=== PATIENT | female | born 1970 | race African-American/Black ===

== ENCOUNTER 2016-10-07 14:23 | Emergency (ER) | payer MEDICAID, OTHER ==
[~2016-10-07] VITALS: Ht 182.9 cm; Wt 141.0 kg
[~2016-10-07 14:23] MED LIST: BENA10TA3 PO; CLON0.2T12 PO; DOCU-138 PO; FERR-63; FS300 PO; MEDR10TA PO
[2016-10-07] MEDS ORDERED: KETOROLAC 60MG/2ML VIAL IM STA (15:47)
[2016-10-07] MEDS ORDERED: CYCLOBENZAPRINE 10MG TABLET PO ONE (16:00)
[2016-10-07] MEDS ORDERED: AMLODIPINE 5MG TABLET PO ONE (16:00)
[2016-10-07] MEDS ORDERED: CLONIDINE 0.1MG TABLET PO ONE (16:00)
[2016-10-07 16:06] VITALS: BP 162/133
[2016-10-07 16:15] LABS: PROTHROMBIN TIME 10.7 sec
[2016-10-07 16:18] LABS: BASOPHILS % 0.7 % (0.0-2.0); EOSINOPHILS % 1.2 % (0.0-5.0); HEMATOCRIT. 40.9 % (36.0-48.0); HEMOGLOBIN. 13.7 g/dL (12.0-16.0); LYMPHOCYTES % 19.6 % (20.0-50.0); MEAN CORPUSCULAR HEMOGLOBIN 27.8 pg (28.0-32.0); MEAN CORPUSCULAR VOLUME 82.8 fL (81.0-99.0); MEAN PLATELET VOLUME 7.6 fl (7.4-10.4); MONOCYTES % 7.6 % (2.0-8.0); NEUTROPHILS % 70.9 % (40.0-76.0); PLATELET 292 x1000/uL (130-400); RED BLOOD CELL COUNT 4.94 mill/uL (4.2-5.4)
[2016-10-07 16:22] LABS: CARBON DIOXIDE 30 mEq/L (21-32); CHLORIDE 101 mEq/L (98-107)
[2016-10-07 16:54] LABS: CLARITY URINE CLOUDY (CLEAR); COLOR URINE YELLOW (YELLOW); GLUCOSE URINE TRACE (NEGATIVE); KETONES URINE NEGATIVE (NEGATIVE); LEUKOCYTE ESTERASE URINE 2+ (NEGATIVE); NITRITE URINE NEGATIVE (NEGATIVE); OCCULT BLOOD URINE 1+ (NEGATIVE); PH URINE 5.5 (4.5-8.0); PROTEIN URINE 2+ (NEGATIVE); SPECIFIC GRAVITY URINE 1.021 (1.005-1.030)
== END 2016-10-07 20:05 | disposition home or self-care (01) ==
LOC: ER 20:04
DX: M54.30 Sciatica, unspecified side (principal); M54.16 Radiculopathy, lumbar region; N30.00 Acute cystitis without hematuria; I16.0 Hypertensive urgency; Z88.1 Allergy status to other antibiotic agents; Z88.2 Allergy status to sulfonamides
CPT/HCPCS: 36415; 80053; 81001; 81025; 85025; 85610; 93005; 99285; J1885

== ENCOUNTER 2019-03-30 20:51 | Inpatient (IN) | payer MEDICAID, OTHER ==
[~2019-03-30] VITALS: Ht 182.9 cm; Wt 93.0 kg
[~2019-03-30 20:51] MED LIST changes: -BENA10TA3 PO; +BENA10TA74 PO; +FERR325T23 PO; -FS300 PO
[2019-03-30] MEDS ORDERED: ALBUTEROL (0.083%) 2.5MG/3ML NEB HHN STA (21:21)
[2019-03-30] MEDS ORDERED: ONDANSETRON HCL 4MG/2ML INJ IV STA (21:21)
[2019-03-30] MEDS ORDERED: IPRATROPIUM BROMIDE (0.02%) 0.5MG/2.5ML NEB HHN STA (21:21)
[2019-03-30] MEDS ORDERED: MORPHINE SULFATE 4 MG/ML CPJ (NOT FOR IM USE) IV STA (21:21)
[2019-03-30] MEDS ORDERED: SODIUM CHLORIDE 0.9% 1000ML BAG (SEPSIS BOLUS) IV ONE (21:30)
[2019-03-30 23:16] LABS: CLARITY URINE CLEAR (CLEAR); COLOR URINE YELLOW (YELLOW); KETONES URINE NEGATIVE (NEGATIVE); LEUKOCYTE ESTERASE URINE TRACE (NEGATIVE); NITRITE URINE NEGATIVE (NEGATIVE); OCCULT BLOOD URINE NEGATIVE (NEGATIVE); PROTEIN URINE NEGATIVE (NEGATIVE); SPECIFIC GRAVITY URINE 1.017 (1.005-1.030)
[2019-03-30 23:49] LABS: CHLORIDE 112 mEq/L (98-107); HEMOGLOBIN. 12.3 g/dL (12.0-16.0); MEAN CORPUSCULAR HEMOGLOBIN 29.6 pg (28.0-32.0); MEAN CORPUSCULAR VOLUME 91.6 fL (81.0-99.0); MEAN PLATELET VOLUME 7.6 fl (7.4-10.4); PLATELET 164 x1000/uL (130-400); RED BLOOD CELL COUNT 4.15 mill/uL (4.2-5.4); RED CELL DISTRIBUTION WIDTH 13.7 % (11.6-14.6)
[2019-03-30 23:52] LABS: INR 1.1; PROTHROMBIN TIME 11.1 sec (9.6-11.0)
[2019-03-31 00:12] LABS: HCG SCREEN NEGATIVE
[2019-03-31 00:17] LABS: ATYPICAL LYMPHOCYTES 1; PLATELET ESTIMATE NORMAL
[2019-03-31] MEDS ORDERED: PIPERACILLIN/TAZ 3.375G PREMIX 50 ML IV ONE (01:30)
[2019-03-31] MEDS ORDERED: VANCOMYCIN 1 G PREMIX 200 ML IV ONE (02:00)
[2019-03-31] MEDS ORDERED: IOHEXOL-350 100 ML BOTTLE ONE (03:51)
[2019-03-31] MEDS ORDERED: HYDRALAZINE 20MG/ML VIAL IV PRN (07:15)
[2019-03-31] MEDS ORDERED: MAGNESIUM/ALUMINUM HYDROXIDE/SIMETHICONE 30ML UDC PO PRN (07:15)
[2019-03-31] MEDS ORDERED: DOCUSATE SODIUM 100MG CAPSULE PO PRN (07:15)
[2019-03-31] MEDS ORDERED: CLONIDINE 0.1MG TABLET PO PRN (07:15)
[2019-03-31] MEDS ORDERED: ACETAMINOPHEN 325MG TABLET PO PRN (07:15)
[2019-03-31] MEDS ORDERED: ONDANSETRON HCL 4MG/2ML INJ IV PRN (07:15)
[2019-03-31] MEDS ORDERED: LORAZEPAM 2MG/ML CPJ IV PRN (07:15)
[2019-03-31] MEDS ORDERED: DIPHENHYDRAMINE 50MG/ML VIAL IV PRN (07:15)
[2019-03-31] MEDS ORDERED: GUAIFENESIN 200MG/10ML SUGAR FREE UDC PO PRN (07:15)
[2019-03-31] MEDS ORDERED: IPRATROPIUM/ALBUTEROL 0.5-3(2.5)MG/3ML NEB HHN PRN ×2 (07:15→16:00)
[2019-03-31] MEDS ORDERED: HYDROCODONE/ACETAMINOPHEN 10/325MG TABLET PO PRN (07:15)
[2019-03-31] MEDS ORDERED: PIPERACILLIN/TAZ 3.375G PREMIX 50 ML IV SCH (08:00)
[2019-03-31] MEDS ORDERED: VANCOMYCIN 1 G PREMIX 200 ML IV SCH (08:00)
[2019-03-31] MEDS: ENOXAPARIN 40MG/0.4ML SYR SUBCUT SCH (08:17)
[2019-03-31] MEDS: MORPHINE SULFATE 2 MG/ML CPJ (NOT FOR IM USE) IV PRN ×3 (08:18→20:40)
[2019-03-31 10:10] VITALS: BP 131/93
[2019-03-31 12:00] VITALS: BP 108/86
[2019-03-31] MEDS ORDERED: DOCU50LI25 MT (12:38)
[2019-03-31] MEDS ORDERED: FAMO-133 MT (12:39)
[2019-03-31] MEDS ORDERED: HYDR-4133 MT (12:40)
[2019-03-31] MEDS ORDERED: LABE200T28 MT (12:41)
[2019-03-31] MEDS ORDERED: BO1 TP (12:43)
[2019-03-31] MEDS ORDERED: LEVO75TA7 MT (12:44)
[2019-03-31] MEDS ORDERED: IPRA3AMP31 NEB (12:44)
[2019-03-31] MEDS ORDERED: CLON0.1T PO (12:45)
[2019-03-31] MEDS ORDERED: METF-414 MT (12:46)
[2019-03-31] MEDS ORDERED: HYDR-3280 MT (13:04)
[2019-03-31] MEDS: SODIUM CHLORIDE 0.9% INJ 3ML FLUSH IVF SCH ×2 (14:00→21:38)
[2019-03-31] MEDS ORDERED: FUROSEMIDE 40MG/4ML VIAL IVP SCH (15:00)
[2019-03-31] MEDS: POTASSIUM CHLORIDE 20MEQ/PACKET PO SCH (15:15)
[2019-03-31 16:00] VITALS: BP 119/87
[2019-03-31] MEDS: PIPERACILLIN/TAZOBACTAM 3.375 G in DEXT 5% WATER 100 ML IV SCH ×2 (17:06→23:53)
[2019-03-31 17:22] LABS: CREATINE KINASE 59 IU/L (26-192); CREATINE KINASE MB FRACTION < 1.0 ng/mL (0.5-3.6)
[2019-03-31] MEDS: VANCOMYCIN 1 G PREMIX 200 ML IV SCH (18:27)
[2019-03-31 20:00] VITALS: BP 135/97
[2019-03-31] MEDS: IPRATROPIUM/ALBUTEROL 0.5-3(2.5)MG/3ML NEB HHN SCH (21:24)
[2019-03-31 23:45] LABS: CREATINE KINASE 46 IU/L (26-192)
[2019-03-31 23:46] LABS: CREATINE KINASE MB FRACTION < 1.0 ng/mL (0.5-3.6)
[2019-04-01] VITALS: BP 129/110
[2019-04-01] MEDS: ACETYLCYSTEINE 100MG/ML 10% VIAL 4ML INH SCH ×3 (00:15→12:49)
[2019-04-01] MEDS: VANCOMYCIN 1 G PREMIX 200 ML IV SCH ×2 (01:03→08:49)
[2019-04-01] MEDS: MORPHINE SULFATE 2 MG/ML CPJ (NOT FOR IM USE) IV PRN ×3 (03:39→13:16)
[2019-04-01 04:00] VITALS: BP 123/92
[2019-04-01] MEDS: IPRATROPIUM/ALBUTEROL 0.5-3(2.5)MG/3ML NEB HHN SCH ×4 (04:00→12:49)
[2019-04-01] MEDS: PIPERACILLIN/TAZOBACTAM 3.375 G in DEXT 5% WATER 100 ML IV SCH (06:04)
[2019-04-01] MEDS: SODIUM CHLORIDE 0.9% INJ 3ML FLUSH IVF SCH ×2 (06:05→13:17)
[2019-04-01 08:34] VITALS: BP 137/91
[2019-04-01] MEDS: POTASSIUM CHLORIDE 20MEQ/PACKET PO SCH (08:49)
[2019-04-01] MEDS: ENOXAPARIN 40MG/0.4ML SYR SUBCUT SCH (08:50)
[2019-04-01] MEDS ORDERED: FUROSEMIDE 40MG/4ML VIAL IVP SCH (09:00)
[2019-04-01 11:17] VITALS: BP 137/91
[2019-04-01 12:02] VITALS: BP 117/85
[2019-04-01] MEDS ORDERED: PIPERACILLIN/TAZOBACTAM 3.375 G in DEXT 5% WATER 100 ML IV SCH (13:00)
[2019-04-01 13:16] VITALS: BP 117/85
== END 2019-04-01 15:30 | disposition home or self-care (01) | DRG 720 ==
LOC: ER 20:51 → 6WST 03-31 00:56 → EDBEDREQ 03-31 01:01 → EDBEDREQDT 03-31 01:01 → EDBEDREQSVC 03-31 01:01 → EDBEDREQTM 03-31 01:01 → ENRESERV 03-31 09:02
PROVIDERS: ADMIT Internal Medicine; ATTEND Internal Medicine
DX: A41.9 Sepsis, unspecified organism (principal); J96.00 Acute respiratory failure, unspecified whether with hypoxia or hypercapnia; E87.2 Acidosis; E46 Unspecified protein-calorie malnutrition; Z93.0 Tracheostomy status; R13.10 Dysphagia, unspecified; I11.0 Hypertensive heart disease with heart failure; I50.9 Heart failure, unspecified; J45.901 Unspecified asthma with (acute) exacerbation; I71.2 Thoracic aortic aneurysm, without rupture; E03.9 Hypothyroidism, unspecified; G89.29 Other chronic pain; R16.0 Hepatomegaly, not elsewhere classified; N92.1 Excessive and frequent menstruation with irregular cycle; D64.9 Anemia, unspecified; E11.9 Type 2 diabetes mellitus without complications; Z68.27 Body mass index [BMI] 27.0-27.9, adult; Z79.84 Long term (current) use of oral hypoglycemic drugs; Z79.899 Other long term (current) drug therapy; Z82.49 Family history of ischemic heart disease and other diseases of the circulatory system; Z86.73 Personal history of transient ischemic attack (TIA), and cerebral infarction without residual deficits; Z88.2 Allergy status to sulfonamides; Z88.8 Allergy status to other drugs, medicaments and biological substances; K80.20 Calculus of gallbladder without cholecystitis without obstruction
CPT/HCPCS: 36415; 71045; 71275; 76705; 80053; 81003; 82550; 82553; 83605; 83880; 84145; 84484; 84703; 85025; 86850; 86900; 87804; 93005; 93306; 93970; 94640; 99291; J1200; J1650; J1940; J2270; J2405; J2543; J3370; J7030; J7040; J7060; J7608; Q9967

== ENCOUNTER 2019-04-05 16:18 | Inpatient (IN) | payer MEDICAID ==
[~2019-04-05] VITALS: Ht 167.6 cm; Wt 96.2 kg
[2019-04-05] VITALS (8 sets, daily range): BP systolic 103–126; BP diastolic 60–96
[~2019-04-05 16:18] MED LIST changes: +BO1 TP; +CLON0.1T PO; +DOCU50LI25 MT; +FAMO-133 MT; +HYDR-3280 MT; +HYDR-4133 MT; +IPRA3AMP31 NEB; +IPRATROPIUM/ALBUTEROL 0.5-3(2.5)MG/3ML NEB NEB SCH; +LABE200T28 MT; +LEVO75TA7 MT; +METF-414 MT; +VANCOMYCIN 1250MG in DEXTROSE 5% WATER 250ML IV SCH
[2019-04-05 16:43] LABS: BASOPHILS % 0.5 % (0.0-2.0); EOSINOPHILS % 0.9 % (0.0-5.0); HEMATOCRIT. 45.2 % (36.0-48.0); HEMOGLOBIN. 14.2 g/dL (12.0-16.0); LYMPHOCYTES % 40.2 % (20.0-50.0); MEAN CORPUSCULAR HEMOGLOBIN 29.6 pg (28.0-32.0); MEAN CORPUSCULAR VOLUME 94.2 fL (81.0-99.0); MEAN PLATELET VOLUME 8.1 fl (7.4-10.4); MONOCYTES % 9.7 % (2.0-8.0); NEUTROPHILS % 48.7 % (40.0-76.0); PLATELET 368 x1000/uL (130-400); RED BLOOD CELL COUNT 4.79 mill/uL (4.2-5.4); RED CELL DISTRIBUTION WIDTH 14.1 % (11.6-14.6)
[2019-04-05] MEDS ORDERED: PROPOFOL 10MG/ML 100ML 100 ML IV ONE (16:45)
[2019-04-05 16:49] LABS: PROTHROMBIN TIME 10.7 sec (9.6-11.0)
[2019-04-05 16:50] LABS: CHLORIDE 104 mEq/L (98-107)
[2019-04-05 17:27] LABS: BG BASE EXCESS -13.4 mmol/L (-2.0-2.0); BG CARBOXYHEMOGLOBIN 0.2 % (0.5-1.5); BG DEOXYHEMOGLOBIN 0.4 % (0.0-5.0); BG FRACTION INSPIRED OXYGEN 100; BG HCO3 ACT 12.9 mmol/L (22.0-26.0); BG METHEMOGLOBIN 0.4 % (0.0-1.5); BG OXYGEN SATURATION 99.6 % (92.0-98.5); BG PCO2 31.4 mmHg (35.0-45.0); BG PO2 408.6 mmHg (75.0-100.0); BG SAMPLE SITE RIGHT BRACHIAL; BG TIDAL VOLUME(mL) 500 mL; BG VENT MODE VENT - A/C; BG VENT RATE 12 set
[2019-04-05] MEDS ORDERED: AZITHROMYCIN 500 MG in DEXT 5% WATER 250 ML IV SCH (17:30)
[2019-04-05] MEDS ORDERED: CEFTRIAXONE 1 G PREMIX 50 ML IV ONE (17:30)
[2019-04-05 17:54] LABS: CLARITY URINE TURBID (CLEAR); COLOR URINE YELLOW (YELLOW); KETONES URINE NEGATIVE (NEGATIVE); LEUKOCYTE ESTERASE URINE NEGATIVE (NEGATIVE); NITRITE URINE NEGATIVE (NEGATIVE); OCCULT BLOOD URINE 2+ (NEGATIVE); PH URINE 6.5 (4.5-8.0); PROTEIN URINE 4+ (NEGATIVE); SPECIFIC GRAVITY URINE 1.022 (1.005-1.030); UROBILINOGEN URINE 0.2 E.U./dL (0.2-1.0)
[2019-04-05 19:01] LABS: HCG SCREEN NEGATIVE
[2019-04-05] MEDS ORDERED: GUAIFENESIN 200MG/10ML SUGAR FREE UDC PO PRN (20:15)
[2019-04-05] MEDS ORDERED: DEXTROSE 50% WATER 50ML SYRINGE IV PRN (20:15)
[2019-04-05] MEDS ORDERED: ENOXAPARIN 40MG/0.4ML SYR SUBCUT SCH (20:15)
[2019-04-05] MEDS ORDERED: HYDRALAZINE 20MG/ML VIAL IV PRN (20:15)
[2019-04-05] MEDS ORDERED: MAGNESIUM/ALUMINUM HYDROXIDE/SIMETHICONE 30ML UDC PO PRN (20:15)
[2019-04-05] MEDS ORDERED: NA PHOS,M-B/NA PHOS,DI-BA ENEMA 118ML PR PRN (20:15)
[2019-04-05] MEDS ORDERED: PIPERACILLIN/TAZ 3.375G PREMIX 50 ML IV SCH (20:15)
[2019-04-05] MEDS ORDERED: DOCUSATE SODIUM 100MG CAPSULE PO PRN (20:15)
[2019-04-05] MEDS ORDERED: IPRATROPIUM/ALBUTEROL 0.5-3(2.5)MG/3ML NEB NEB PRN (20:15)
[2019-04-05] MEDS ORDERED: VANCOMYCIN 1 G PREMIX 200 ML IV SCH (20:15)
[2019-04-05] MEDS ORDERED: ACETAMINOPHEN 325MG TABLET PO PRN (20:15)
[2019-04-05] MEDS: SODIUM CHLORIDE 0.9% INJ 3ML FLUSH IVF SCH (22:00)
[2019-04-05] MEDS ORDERED: IOHEXOL-350 100 ML BOTTLE ONE (22:02)
[2019-04-05] MEDS: BLOOD SUGAR DIAGNOSTIC STRIP TEST SCH (23:00)
[2019-04-05] MEDS: INSULIN LISPRO 100 UNITS/ML SUBCUT SCH (23:00)
[2019-04-05] MEDS ORDERED: SODIUM BICARBONATE 8.4% 1 MEQ/ML 50ML SYR IV NR (23:00)
[2019-04-05 23:07] LABS: CREATINE KINASE MB FRACTION 5.9 ng/mL (0.5-3.6)
[2019-04-05] MEDS: DEXT 5%/0.45% NACL 1000ML 1,000 ML IV SCH (23:52)
[2019-04-05] MEDS: PROPOFOL 10MG/ML 100ML 100 ML IV PRN (23:54)
[2019-04-06] VITALS (60 sets, daily range): BP systolic 99–149; BP diastolic 48–103
[2019-04-06] MEDS ORDERED: VANCOMYCIN 2,000 MG in DEXT 5% WATER 500 ML IV SCH ×2
[2019-04-06] MEDS: PIPERACILLIN/TAZOBACTAM 3.375 G in DEXT 5% WATER 100 ML IV SCH ×4 (00:09→20:06)
[2019-04-06] MEDS: PROPOFOL 10MG/ML 100ML 100 ML IV PRN ×2 (03:14→07:00)
[2019-04-06 05:40] LABS: CHLORIDE 106 mEq/L (98-107)
[2019-04-06] MEDS: SODIUM CHLORIDE 0.9% INJ 3ML FLUSH IVF SCH ×3 (05:42→21:06)
[2019-04-06 05:46] LABS: BASOPHILS % 0.3 % (0.0-2.0); EOSINOPHILS % 0.4 % (0.0-5.0); HEMATOCRIT. 37.2 % (36.0-48.0); HEMOGLOBIN. 12.6 g/dL (12.0-16.0); LYMPHOCYTES % 22.1 % (20.0-50.0); MEAN CORPUSCULAR HEMOGLOBIN 29.8 pg (28.0-32.0); MEAN CORPUSCULAR VOLUME 87.6 fL (81.0-99.0); MONOCYTES % 8.9 % (2.0-8.0); NEUTROPHILS % 68.3 % (40.0-76.0); RED BLOOD CELL COUNT 4.25 mill/uL (4.2-5.4); RED CELL DISTRIBUTION WIDTH 13.5 % (11.6-14.6)
[2019-04-06] MEDS: BLOOD SUGAR DIAGNOSTIC STRIP TEST SCH ×4 (05:52→21:06)
[2019-04-06 05:55] LABS: CREATINE KINASE 146 IU/L (26-192)
[2019-04-06 05:57] LABS: CREATINE KINASE MB FRACTION 6.2 ng/mL (0.5-3.6)
[2019-04-06] MEDS: INSULIN LISPRO 100 UNITS/ML SUBCUT SCH ×4 (06:16→21:00)
[2019-04-06 08:08] LABS: BG BASE EXCESS 1.2 mmol/L (-2.0-2.0); BG DEOXYHEMOGLOBIN 0.7 % (0.0-5.0); BG FRACTION INSPIRED OXYGEN 50; BG HCO3 ACT 23.5 mmol/L (22.0-26.0); BG METHEMOGLOBIN 0.3 % (0.0-1.5); BG OXYGEN SATURATION 99.3 % (92.0-98.5); BG PCO2 30.7 mmHg (35.0-45.0); BG PH 7.502 (7.350-7.450); BG PO2 202.1 mmHg (75.0-100.0); BG SAMPLE SITE RIGHT BRACHIAL; BG TIDAL VOLUME(mL) 500 mL; BG TOTAL HEMOGLOBIN 13.6 g/dL (12.0-18.0); BG VENT MODE VENT - A/C; BG VENT RATE 14 set
[2019-04-06] MEDS: IPRATROPIUM/ALBUTEROL 0.5-3(2.5)MG/3ML NEB HHN SCH ×3 (08:57→20:45)
[2019-04-06] MEDS: ENOXAPARIN 30MG/0.3ML SYR SUBCUT SCH ×2 (09:26→21:00)
[2019-04-06] MEDS ORDERED: POTASSIUM CHLORIDE 20MEQ TABLET SR PO NR (09:30)
[2019-04-06] MEDS: ASPIRIN 81MG TABLET NG SCH (12:18)
[2019-04-06] MEDS: QUETIAPINE FUMARATE 25MG TABLET PEG SCH ×2 (12:18→21:07)
[2019-04-06] MEDS: VANCOMYCIN 1250MG in DEXTROSE 5% WATER 250ML IV SCH ×2 (12:18→21:07)
[2019-04-06] MEDS: BUDESONIDE 0.5MG/2ML NEB HHN SCH ×2 (15:52→20:45)
[2019-04-06] MEDS: MORPHINE SULFATE 2 MG/ML CPJ (NOT FOR IM USE) IV PRN ×2 (16:06→22:47)
[2019-04-06] MEDS: ONDANSETRON HCL 4MG/2ML INJ IV PRN (16:06)
[2019-04-06] MEDS: DEXT 5%/0.45% NACL 1000ML 1,000 ML IV SCH (22:48)
[2019-04-07] VITALS (24 sets, daily range): BP systolic 111–144; BP diastolic 75–100
[2019-04-07] MEDS: IPRATROPIUM/ALBUTEROL 0.5-3(2.5)MG/3ML NEB HHN SCH ×3 (02:59→19:55)
[2019-04-07] MEDS: SODIUM CHLORIDE 0.9% INJ 3ML FLUSH IVF SCH ×3 (05:04→21:01)
[2019-04-07] MEDS: MORPHINE SULFATE 2 MG/ML CPJ (NOT FOR IM USE) IV PRN ×2 (05:13→17:13)
[2019-04-07 05:42] LABS: BASOPHILS % 0.4 % (0.0-2.0); EOSINOPHILS % 2.7 % (0.0-5.0); HEMATOCRIT. 37.6 % (36.0-48.0); HEMOGLOBIN. 12.5 g/dL (12.0-16.0); LYMPHOCYTES % 32.9 % (20.0-50.0); MEAN CORPUSCULAR VOLUME 90.1 fL (81.0-99.0); MEAN PLATELET VOLUME 7.6 fl (7.4-10.4); MONOCYTES % 13.6 % (2.0-8.0); NEUTROPHILS % 50.4 % (40.0-76.0); PLATELET 226 x1000/uL (130-400); RED BLOOD CELL COUNT 4.18 mill/uL (4.2-5.4); RED CELL DISTRIBUTION WIDTH 13.8 % (11.6-14.6)
[2019-04-07 05:45] LABS: CHLORIDE 108 mEq/L (98-107)
[2019-04-07] MEDS: BLOOD SUGAR DIAGNOSTIC STRIP TEST SCH ×4 (05:54→21:01)
[2019-04-07 05:57] LABS: LDL CHOLESTEROL 82 mg/dL (5-100)
[2019-04-07 05:58] LABS: HDL CHOLESTEROL 35 mg/dL (40-59)
[2019-04-07] MEDS: INSULIN LISPRO 100 UNITS/ML SUBCUT SCH ×4 (06:26→21:00)
[2019-04-07] MEDS: PIPERACILLIN/TAZOBACTAM 3.375 G in DEXT 5% WATER 100 ML IV SCH ×6 (06:26→23:53)
[2019-04-07] MEDS: BUDESONIDE 0.5MG/2ML NEB HHN SCH ×2 (07:55→19:55)
[2019-04-07 08:04] LABS: INR 1.1; PROTHROMBIN TIME 10.9 sec (9.6-11.0)
[2019-04-07] MEDS: VANCOMYCIN 1250MG in DEXTROSE 5% WATER 250ML IV SCH (08:50)
[2019-04-07] MEDS: ENOXAPARIN 30MG/0.3ML SYR SUBCUT SCH (08:50)
[2019-04-07] MEDS: ASPIRIN 81MG TABLET NG SCH (08:51)
[2019-04-07] MEDS: LORAZEPAM 2MG/ML CPJ IV PRN ×2 (08:51→20:44)
[2019-04-07] MEDS: QUETIAPINE FUMARATE 25MG TABLET PEG SCH ×2 (08:51→20:44)
[2019-04-07] MEDS: VANCOMYCIN 1 G PREMIX 200 ML IV SCH ×2 (11:26→23:57)
[2019-04-07] MEDS: DIPHENHYDRAMINE 50MG/ML VIAL IV PRN (20:44)
[2019-04-07] MEDS: DEXT 5%/0.45% NACL 1000ML 1,000 ML IV SCH (23:53)
[2019-04-08] VITALS (24 sets, daily range): BP systolic 108–153; BP diastolic 34–113
[2019-04-08] MEDS: IPRATROPIUM/ALBUTEROL 0.5-3(2.5)MG/3ML NEB HHN SCH ×4 (02:05→20:38)
[2019-04-08] MEDS: LORAZEPAM 2MG/ML CPJ IV PRN ×2 (02:46→20:32)
[2019-04-08] MEDS: SODIUM CHLORIDE 0.9% INJ 3ML FLUSH IVF SCH ×3 (05:22→22:58)
[2019-04-08] MEDS: PIPERACILLIN/TAZOBACTAM 3.375 G in DEXT 5% WATER 100 ML IV SCH ×4 (05:22→23:56)
[2019-04-08 06:02] LABS: BASOPHILS % 0.5 % (0.0-2.0); EOSINOPHILS % 3.4 % (0.0-5.0); HEMATOCRIT. 35.9 % (36.0-48.0); HEMOGLOBIN. 12.1 g/dL (12.0-16.0); LYMPHOCYTES % 19.2 % (20.0-50.0); MEAN CORPUSCULAR HEMOGLOBIN 29.8 pg (28.0-32.0); MEAN CORPUSCULAR VOLUME 88.5 fL (81.0-99.0); MEAN PLATELET VOLUME 8.1 fl (7.4-10.4); MONOCYTES % 10.7 % (2.0-8.0); NEUTROPHILS % 66.2 % (40.0-76.0); PLATELET 226 x1000/uL (130-400); RED BLOOD CELL COUNT 4.05 mill/uL (4.2-5.4); RED CELL DISTRIBUTION WIDTH 13.8 % (11.6-14.6)
[2019-04-08 06:21] LABS: CHLORIDE 109 mEq/L (98-107)
[2019-04-08] MEDS: BLOOD SUGAR DIAGNOSTIC STRIP TEST SCH ×4 (06:26→20:33)
[2019-04-08] MEDS: INSULIN LISPRO 100 UNITS/ML SUBCUT SCH ×4 (06:27→20:33)
[2019-04-08] MEDS: BUDESONIDE 0.5MG/2ML NEB HHN SCH ×2 (08:00→20:38)
[2019-04-08] MEDS: ASPIRIN 81MG TABLET NG SCH (08:17)
[2019-04-08] MEDS: QUETIAPINE FUMARATE 25MG TABLET PEG SCH ×2 (08:17→20:32)
[2019-04-08] MEDS: MORPHINE SULFATE 2 MG/ML CPJ (NOT FOR IM USE) IV PRN ×2 (09:50→20:32)
[2019-04-08] MEDS ORDERED: KCL 20MEQ/100ML PREMIX 100 ML IV ONE (10:15)
[2019-04-08] MEDS: DIPHENHYDRAMINE 50MG/ML VIAL IV PRN (10:53)
[2019-04-08] MEDS ORDERED: KCL 20MEQ/100ML PREMIX 100 ML IV NR (12:00)
[2019-04-08] MEDS: VANCOMYCIN 1250MG in DEXTROSE 5% WATER 250ML IV SCH (18:22)
[2019-04-08] MEDS: ONDANSETRON HCL 4MG/2ML INJ IV PRN (20:56)
[2019-04-08] MEDS: DEXT 5%/0.45% NACL 1000ML 1,000 ML IV SCH (23:50)
[2019-04-09] VITALS (25 sets, daily range): BP systolic 130–167; BP diastolic 76–116
[2019-04-09] MEDS: IPRATROPIUM/ALBUTEROL 0.5-3(2.5)MG/3ML NEB HHN SCH ×4 (01:30→20:50)
[2019-04-09] MEDS: MORPHINE SULFATE 2 MG/ML CPJ (NOT FOR IM USE) IV PRN ×3 (02:22→14:35)
[2019-04-09] MEDS: HYDROCODONE/ACETAMINOPHEN 10/325MG TABLET PO PRN ×2 (04:52→20:27)
[2019-04-09] MEDS: PIPERACILLIN/TAZOBACTAM 3.375 G in DEXT 5% WATER 100 ML IV SCH ×3 (05:23→17:24)
[2019-04-09] MEDS: SODIUM CHLORIDE 0.9% INJ 3ML FLUSH IVF SCH ×3 (05:23→22:07)
[2019-04-09] MEDS: BLOOD SUGAR DIAGNOSTIC STRIP TEST SCH ×4 (06:18→21:00)
[2019-04-09] MEDS: INSULIN LISPRO 100 UNITS/ML SUBCUT SCH ×4 (06:19→21:00)
[2019-04-09] MEDS: BUDESONIDE 0.5MG/2ML NEB HHN SCH (08:00)
[2019-04-09] MEDS: ASPIRIN 81MG TABLET NG SCH (08:45)
[2019-04-09] MEDS: QUETIAPINE FUMARATE 25MG TABLET PEG SCH ×2 (08:45→20:27)
[2019-04-09] MEDS: VANCOMYCIN 1250MG in DEXTROSE 5% WATER 250ML IV SCH (11:43)
[2019-04-09] MEDS ORDERED: LORAZEPAM 2MG/ML CPJ IV SCH (11:45)
[2019-04-09] MEDS: DIPHENHYDRAMINE 50MG/ML VIAL IV PRN (16:38)
[2019-04-09] MEDS: LORAZEPAM 2MG/ML CPJ IV PRN (18:20)
[2019-04-10] VITALS (24 sets, daily range): BP systolic 106–157; BP diastolic 56–101
[2019-04-10] MEDS: DEXT 5%/0.45% NACL 1000ML 1,000 ML IV SCH
[2019-04-10] MEDS: PIPERACILLIN/TAZOBACTAM 3.375 G in DEXT 5% WATER 100 ML IV SCH ×4 (00:33→17:21)
[2019-04-10] MEDS: MORPHINE SULFATE 2 MG/ML CPJ (NOT FOR IM USE) IV PRN ×3 (01:23→17:14)
[2019-04-10] MEDS: VANCOMYCIN 1250MG in DEXTROSE 5% WATER 250ML IV SCH (05:00)
[2019-04-10 05:02] LABS: CHLORIDE 108 mEq/L (98-107)
[2019-04-10 05:08] LABS: BASOPHILS % 0.9 % (0.0-2.0); EOSINOPHILS % 2.2 % (0.0-5.0); HEMATOCRIT. 38.6 % (36.0-48.0); HEMOGLOBIN. 13.3 g/dL (12.0-16.0); MEAN CORPUSCULAR HEMOGLOBIN 30.7 pg (28.0-32.0); MEAN CORPUSCULAR VOLUME 89.1 fL (81.0-99.0); MEAN PLATELET VOLUME 7.7 fl (7.4-10.4); MONOCYTES % 6.3 % (2.0-8.0); NEUTROPHILS % 75.6 % (40.0-76.0); PLATELET 238 x1000/uL (130-400); RED BLOOD CELL COUNT 4.33 mill/uL (4.2-5.4); RED CELL DISTRIBUTION WIDTH 13.6 % (11.6-14.6)
[2019-04-10] MEDS: SODIUM CHLORIDE 0.9% INJ 3ML FLUSH IVF SCH ×3 (06:00→21:58)
[2019-04-10] MEDS: INSULIN LISPRO 100 UNITS/ML SUBCUT SCH ×4 (07:00→20:36)
[2019-04-10] MEDS: BLOOD SUGAR DIAGNOSTIC STRIP TEST SCH ×4 (07:14→20:35)
[2019-04-10] MEDS: IPRATROPIUM/ALBUTEROL 0.5-3(2.5)MG/3ML NEB HHN SCH ×3 (08:02→20:00)
[2019-04-10] MEDS: ASPIRIN 81MG TABLET NG SCH (08:59)
[2019-04-10] MEDS: QUETIAPINE FUMARATE 25MG TABLET PEG SCH ×2 (08:59→20:09)
[2019-04-10] MEDS: HYDROCODONE/ACETAMINOPHEN 10/325MG TABLET PO PRN (18:43)
[2019-04-10] MEDS: DIPHENHYDRAMINE 50MG/ML VIAL IV PRN (20:09)
[2019-04-10] MEDS: LORAZEPAM 2MG/ML CPJ IV PRN (22:13)
[2019-04-11] VITALS (24 sets, daily range): BP systolic 106–147; BP diastolic 70–97
[2019-04-11] MEDS: PIPERACILLIN/TAZOBACTAM 3.375 G in DEXT 5% WATER 100 ML IV SCH ×5 (00:46→23:54)
[2019-04-11] MEDS: DEXT 5%/0.45% NACL 1000ML 1,000 ML IV SCH ×2 (00:46→23:54)
[2019-04-11] MEDS: VANCOMYCIN 1250MG in DEXTROSE 5% WATER 250ML IV SCH ×2 (00:48→17:34)
[2019-04-11] MEDS: IPRATROPIUM/ALBUTEROL 0.5-3(2.5)MG/3ML NEB HHN SCH ×3 (01:50→14:51)
[2019-04-11 05:37] LABS: BASOPHILS % 0.8 % (0.0-2.0); EOSINOPHILS % 2.7 % (0.0-5.0); HEMATOCRIT. 35.4 % (36.0-48.0); HEMOGLOBIN. 12.2 g/dL (12.0-16.0); LYMPHOCYTES % 19.6 % (20.0-50.0); MEAN CORPUSCULAR HEMOGLOBIN 30.8 pg (28.0-32.0); MEAN CORPUSCULAR VOLUME 89.4 fL (81.0-99.0); MEAN PLATELET VOLUME 8.5 fl (7.4-10.4); MONOCYTES % 7.1 % (2.0-8.0); NEUTROPHILS % 69.8 % (40.0-76.0); PLATELET 281 x1000/uL (130-400); RED BLOOD CELL COUNT 3.96 mill/uL (4.2-5.4); RED CELL DISTRIBUTION WIDTH 13.9 % (11.6-14.6)
[2019-04-11] MEDS: SODIUM CHLORIDE 0.9% INJ 3ML FLUSH IVF SCH ×3 (05:56→22:00)
[2019-04-11 06:17] LABS: CHLORIDE 105 mEq/L (98-107)
[2019-04-11] MEDS: INSULIN LISPRO 100 UNITS/ML SUBCUT SCH ×4 (06:22→21:00)
[2019-04-11] MEDS: BLOOD SUGAR DIAGNOSTIC STRIP TEST SCH ×4 (06:22→21:17)
[2019-04-11] MEDS: MORPHINE SULFATE 2 MG/ML CPJ (NOT FOR IM USE) IV PRN ×3 (07:51→21:20)
[2019-04-11] MEDS: QUETIAPINE FUMARATE 25MG TABLET PEG SCH ×2 (09:18→21:29)
[2019-04-11] MEDS: ASPIRIN 81MG TABLET NG SCH (09:18)
[2019-04-11] MEDS: HYDROCODONE/ACETAMINOPHEN 10/325MG TABLET PO PRN (14:38)
[2019-04-11] MEDS: DIPHENHYDRAMINE 50MG/ML VIAL IV PRN (16:06)
[2019-04-12] VITALS (25 sets, daily range): BP systolic 104–145; BP diastolic 70–103
[2019-04-12] MEDS: MORPHINE SULFATE 2 MG/ML CPJ (NOT FOR IM USE) IV PRN ×4 (01:47→15:30)
[2019-04-12] MEDS: SODIUM CHLORIDE 0.9% INJ 3ML FLUSH IVF SCH ×3 (05:06→22:00)
[2019-04-12] MEDS: PIPERACILLIN/TAZOBACTAM 3.375 G in DEXT 5% WATER 100 ML IV SCH ×3 (05:36→17:00)
[2019-04-12] MEDS: BLOOD SUGAR DIAGNOSTIC STRIP TEST SCH ×4 (05:42→20:46)
[2019-04-12 05:45] LABS: BASOPHILS % 0.5 % (0.0-2.0); EOSINOPHILS % 3.4 % (0.0-5.0); HEMATOCRIT. 33.1 % (36.0-48.0); HEMOGLOBIN. 11.2 g/dL (12.0-16.0); LYMPHOCYTES % 16.1 % (20.0-50.0); MEAN CORPUSCULAR HEMOGLOBIN 30.1 pg (28.0-32.0); MEAN PLATELET VOLUME 7.8 fl (7.4-10.4); PLATELET 249 x1000/uL (130-400); RED BLOOD CELL COUNT 3.71 mill/uL (4.2-5.4); RED CELL DISTRIBUTION WIDTH 13.8 % (11.6-14.6)
[2019-04-12 06:07] LABS: CHLORIDE 103 mEq/L (98-107)
[2019-04-12] MEDS: INSULIN LISPRO 100 UNITS/ML SUBCUT SCH ×4 (06:59→20:45)
[2019-04-12] MEDS: ASPIRIN 81MG TABLET NG SCH (08:16)
[2019-04-12] MEDS: QUETIAPINE FUMARATE 25MG TABLET PEG SCH ×2 (08:16→20:44)
[2019-04-12] MEDS: HYDROCODONE/ACETAMINOPHEN 10/325MG TABLET PO PRN ×2 (08:42→17:00)
[2019-04-12] MEDS: IPRATROPIUM/ALBUTEROL 0.5-3(2.5)MG/3ML NEB HHN SCH ×3 (09:39→20:44)
[2019-04-12] MEDS: VANCOMYCIN 1250MG in DEXTROSE 5% WATER 250ML IV SCH (10:32)
[2019-04-12] MEDS ORDERED: RACEPINEPHRINE 2.25% 0.5ML NEB VIAL ONE (12:19)
[2019-04-12] MEDS: LORAZEPAM 2MG/ML CPJ IV PRN ×2 (12:30→12:49)
[2019-04-12 13:02] LABS: BG BASE EXCESS 2.4 mmol/L (-2.0-2.0); BG CARBOXYHEMOGLOBIN 0.3 % (0.5-1.5); BG DEOXYHEMOGLOBIN 3.6 % (0.0-5.0); BG FRACTION INSPIRED OXYGEN 35; BG HCO3 ACT 28.4 mmol/L (22.0-26.0); BG METHEMOGLOBIN 0.3 % (0.0-1.5); BG OXYGEN SATURATION 96.4 % (92.0-98.5); BG OXYHEMOGLOBIN 95.8 % (94.0-97.0); BG PCO2 50.2 mmHg (35.0-45.0); BG PH 7.371 (7.350-7.450); BG SAMPLE SITE RIGHT RADIAL; BG TIDAL VOLUME(mL) 500 mL; BG TOTAL HEMOGLOBIN 12.7 g/dL (12.0-18.0); BG VENT MODE VENT - A/C; BG VENT RATE 12 set
[2019-04-12] MEDS: DIPHENHYDRAMINE 50MG/ML VIAL IV PRN (20:01)
[2019-04-12] MEDS: ONDANSETRON HCL 4MG/2ML INJ IV PRN (20:01)
[2019-04-12] MEDS: DEXT 5%/0.45% NACL 1000ML 1,000 ML IV SCH (20:49)
[2019-04-13] VITALS (31 sets, daily range): BP systolic 89–165; BP diastolic 35–121
[2019-04-13] MEDS: IPRATROPIUM/ALBUTEROL 0.5-3(2.5)MG/3ML NEB HHN SCH ×4 (02:21→21:35)
[2019-04-13] MEDS: HYDROCODONE/ACETAMINOPHEN 10/325MG TABLET PO PRN ×2 (03:06→21:03)
[2019-04-13] MEDS: VANCOMYCIN 1250MG in DEXTROSE 5% WATER 250ML IV SCH ×2 (04:37→23:02)
[2019-04-13] MEDS: SODIUM CHLORIDE 0.9% INJ 3ML FLUSH IVF SCH ×3 (05:22→22:00)
[2019-04-13] MEDS: BLOOD SUGAR DIAGNOSTIC STRIP TEST SCH ×4 (05:23→20:37)
[2019-04-13] MEDS: INSULIN LISPRO 100 UNITS/ML SUBCUT SCH ×4 (05:24→20:37)
[2019-04-13] MEDS: QUETIAPINE FUMARATE 25MG TABLET PEG SCH ×2 (09:00→20:22)
[2019-04-13] MEDS: ASPIRIN 81MG TABLET NG SCH (09:00)
[2019-04-13] MEDS: MORPHINE SULFATE 2 MG/ML CPJ (NOT FOR IM USE) IV PRN ×3 (10:47→23:02)
[2019-04-13] MEDS: LORAZEPAM 2MG/ML CPJ IV PRN (15:07)
[2019-04-13] MEDS ORDERED: ROCURONIUM BROMIDE 10MG/ML VIAL 5ML IV ONE (19:12)
[2019-04-13] MEDS ORDERED: MIDAZOLAM HCL 2 MG/2 ML VIAL ONE (19:12)
[2019-04-13] MEDS ORDERED: FENTANYL CITRATE/PF 50MCG/ML 2ML VIAL ONE (19:30)
[2019-04-13] MEDS: CLONIDINE 0.1MG TABLET PO PRN (20:58)
[2019-04-14] VITALS (24 sets, daily range): BP systolic 97–153; BP diastolic 48–99
[2019-04-14] MEDS: DEXT 5%/0.45% NACL 1000ML 1,000 ML IV SCH ×2 (00:29→23:23)
[2019-04-14] MEDS: IPRATROPIUM/ALBUTEROL 0.5-3(2.5)MG/3ML NEB HHN SCH ×4 (02:00→20:00)
[2019-04-14] MEDS: HYDROCODONE/ACETAMINOPHEN 10/325MG TABLET PO PRN ×4 (02:11→23:11)
[2019-04-14 05:43] LABS: BASOPHILS % 0.7 % (0.0-2.0); EOSINOPHILS % 2.2 % (0.0-5.0); HEMATOCRIT. 32.3 % (36.0-48.0); HEMOGLOBIN. 11.1 g/dL (12.0-16.0); MEAN CORPUSCULAR HEMOGLOBIN 30.4 pg (28.0-32.0); MEAN CORPUSCULAR VOLUME 88.7 fL (81.0-99.0); MEAN PLATELET VOLUME 8.2 fl (7.4-10.4); MONOCYTES % 10.5 % (2.0-8.0); NEUTROPHILS % 70.6 % (40.0-76.0); PLATELET 201 x1000/uL (130-400); RED BLOOD CELL COUNT 3.64 mill/uL (4.2-5.4); RED CELL DISTRIBUTION WIDTH 13.6 % (11.6-14.6)
[2019-04-14] MEDS: MORPHINE SULFATE 2 MG/ML CPJ (NOT FOR IM USE) IV PRN ×3 (05:46→20:28)
[2019-04-14] MEDS: BLOOD SUGAR DIAGNOSTIC STRIP TEST SCH ×4 (06:00→20:20)
[2019-04-14] MEDS: SODIUM CHLORIDE 0.9% INJ 3ML FLUSH IVF SCH ×3 (06:00→22:26)
[2019-04-14] MEDS: INSULIN LISPRO 100 UNITS/ML SUBCUT SCH ×4 (06:12→20:20)
[2019-04-14] MEDS: ASPIRIN 81MG TABLET NG SCH (08:34)
[2019-04-14] MEDS: QUETIAPINE FUMARATE 25MG TABLET PEG SCH ×2 (08:34→20:19)
[2019-04-14] MEDS: DIPHENHYDRAMINE 50MG/ML VIAL IV PRN (17:44)
[2019-04-14] MEDS: VANCOMYCIN 1250MG in DEXTROSE 5% WATER 250ML IV SCH (17:44)
[2019-04-15] VITALS (15 sets, daily range): BP systolic 101–147; BP diastolic 61–100
[2019-04-15] MEDS: DIPHENHYDRAMINE 50MG/ML VIAL IV PRN (00:19)
[2019-04-15] MEDS: LORAZEPAM 2MG/ML CPJ IV PRN ×3 (00:59→21:14)
[2019-04-15] MEDS: MORPHINE SULFATE 2 MG/ML CPJ (NOT FOR IM USE) IV PRN ×3 (04:56→15:24)
[2019-04-15] MEDS: SODIUM CHLORIDE 0.9% INJ 3ML FLUSH IVF SCH ×3 (06:18→21:27)
[2019-04-15] MEDS: BLOOD SUGAR DIAGNOSTIC STRIP TEST SCH ×4 (06:18→21:00)
[2019-04-15] MEDS: INSULIN LISPRO 100 UNITS/ML SUBCUT SCH ×4 (06:18→21:00)
[2019-04-15 07:47] LABS: BG BASE EXCESS 1.6 mmol/L (-2.0-2.0); BG CARBOXYHEMOGLOBIN 0.3 % (0.5-1.5); BG DEOXYHEMOGLOBIN 1.6 % (0.0-5.0); BG FRACTION INSPIRED OXYGEN 35; BG HCO3 ACT 26.7 mmol/L (22.0-26.0); BG METHEMOGLOBIN 0.3 % (0.0-1.5); BG OXYGEN SATURATION 98.4 % (92.0-98.5); BG OXYHEMOGLOBIN 97.8 % (94.0-97.0); BG PH 7.401 (7.350-7.450); BG PO2 117.4 mmHg (75.0-100.0); BG PRESSURE SUPPORT 8; BG SAMPLE SITE RIGHT RADIAL; BG TOTAL HEMOGLOBIN 11.8 g/dL (12.0-18.0); BG VENT MODE VENT - CPAP
[2019-04-15] MEDS: IPRATROPIUM/ALBUTEROL 0.5-3(2.5)MG/3ML NEB HHN SCH ×3 (08:49→20:58)
[2019-04-15] MEDS: ASPIRIN 81MG TABLET NG SCH (09:02)
[2019-04-15] MEDS: QUETIAPINE FUMARATE 25MG TABLET PEG SCH ×2 (09:03→21:15)
[2019-04-15 09:32] LABS: BASOPHILS % 0.7 % (0.0-2.0); EOSINOPHILS % 2.9 % (0.0-5.0); HEMATOCRIT. 31.8 % (36.0-48.0); HEMOGLOBIN. 10.7 g/dL (12.0-16.0); LYMPHOCYTES % 19.1 % (20.0-50.0); MEAN CORPUSCULAR HEMOGLOBIN 30.2 pg (28.0-32.0); MEAN CORPUSCULAR VOLUME 89.9 fL (81.0-99.0); MEAN PLATELET VOLUME 8.9 fl (7.4-10.4); MONOCYTES % 13.8 % (2.0-8.0); NEUTROPHILS % 63.5 % (40.0-76.0); PLATELET 195 x1000/uL (130-400); RED BLOOD CELL COUNT 3.54 mill/uL (4.2-5.4)
[2019-04-15] MEDS: HYDROCODONE/ACETAMINOPHEN 10/325MG TABLET PO PRN (18:52)
[2019-04-16] VITALS (12 sets, daily range): BP systolic 110–148; BP diastolic 67–107
[2019-04-16] MEDS: IPRATROPIUM/ALBUTEROL 0.5-3(2.5)MG/3ML NEB HHN SCH ×4 (02:24→22:00)
[2019-04-16] MEDS: MORPHINE SULFATE 2 MG/ML CPJ (NOT FOR IM USE) IV PRN ×5 (03:04→22:43)
[2019-04-16] MEDS: SODIUM CHLORIDE 0.9% INJ 3ML FLUSH IVF SCH ×3 (06:00→22:42)
[2019-04-16] MEDS: DEXT 5%/0.45% NACL 1000ML 1,000 ML IV SCH ×2 (06:03→22:43)
[2019-04-16] MEDS: BLOOD SUGAR DIAGNOSTIC STRIP TEST SCH ×3 (06:15→17:47)
[2019-04-16] MEDS: INSULIN LISPRO 100 UNITS/ML SUBCUT SCH ×3 (06:15→17:48)
[2019-04-16] MEDS ORDERED: VANCOMYCIN 1 G PREMIX 200 ML IV SCH (08:00)
[2019-04-16] MEDS: ASPIRIN 81MG TABLET NG SCH (09:15)
[2019-04-16] MEDS: QUETIAPINE FUMARATE 25MG TABLET PEG SCH ×2 (09:15→20:45)
[2019-04-16] MEDS: DIPHENHYDRAMINE 50MG/ML VIAL IV PRN ×2 (14:02→21:45)
[2019-04-17] VITALS (13 sets, daily range): BP systolic 109–171; BP diastolic 77–103
[2019-04-17] MEDS: IPRATROPIUM/ALBUTEROL 0.5-3(2.5)MG/3ML NEB HHN SCH ×4 (03:45→20:30)
[2019-04-17] MEDS: SODIUM CHLORIDE 0.9% INJ 3ML FLUSH IVF SCH ×3 (06:22→21:50)
[2019-04-17] MEDS: MORPHINE SULFATE 2 MG/ML CPJ (NOT FOR IM USE) IV PRN ×4 (06:51→21:49)
[2019-04-17] MEDS: INSULIN LISPRO 100 UNITS/ML SUBCUT SCH ×5 (07:30→20:14)
[2019-04-17] MEDS: BLOOD SUGAR DIAGNOSTIC STRIP TEST SCH ×5 (08:16→20:15)
[2019-04-17] MEDS: QUETIAPINE FUMARATE 25MG TABLET PEG SCH ×2 (08:17→20:10)
[2019-04-17] MEDS: ASPIRIN 81MG TABLET NG SCH (08:17)
[2019-04-17] MEDS: DIPHENHYDRAMINE 50MG/ML VIAL IV PRN (11:07)
[2019-04-17] MEDS ORDERED: BUDESONIDE 0.5MG/2ML NEB HHN SCH (16:00)
[2019-04-17] MEDS: CLONIDINE 0.1MG TABLET PO PRN (20:10)
[2019-04-17] MEDS: DEXT 5%/0.45% NACL 1000ML 1,000 ML IV SCH (22:00)
[2019-04-18] VITALS (12 sets, daily range): BP systolic 116–157; BP diastolic 77–95
[2019-04-18] MEDS: MORPHINE SULFATE 2 MG/ML CPJ (NOT FOR IM USE) IV PRN ×3 (01:53→10:28)
[2019-04-18] MEDS: SODIUM CHLORIDE 0.9% INJ 3ML FLUSH IVF SCH (05:55)
[2019-04-18] MEDS: BLOOD SUGAR DIAGNOSTIC STRIP TEST SCH (07:30)
[2019-04-18] MEDS: INSULIN LISPRO 100 UNITS/ML SUBCUT SCH (07:30)
[2019-04-18] MEDS: ASPIRIN 81MG TABLET NG SCH (08:26)
[2019-04-18] MEDS: QUETIAPINE FUMARATE 25MG TABLET PEG SCH (08:27)
[2019-04-18] MEDS: IPRATROPIUM/ALBUTEROL 0.5-3(2.5)MG/3ML NEB HHN SCH (09:50)
[2019-04-18] MEDS: DIPHENHYDRAMINE 50MG/ML VIAL IV PRN (10:27)
[2019-04-18 11:17] LABS: BASOPHILS % 0.6 % (0.0-2.0); EOSINOPHILS % 3.1 % (0.0-5.0); HEMATOCRIT. 31.1 % (36.0-48.0); HEMOGLOBIN. 10.5 g/dL (12.0-16.0); MEAN CORPUSCULAR HEMOGLOBIN 30.2 pg (28.0-32.0); MEAN CORPUSCULAR VOLUME 89.3 fL (81.0-99.0); MEAN PLATELET VOLUME 8.5 fl (7.4-10.4); MONOCYTES % 8.5 % (2.0-8.0); NEUTROPHILS % 66.8 % (40.0-76.0); PLATELET 219 x1000/uL (130-400); RED BLOOD CELL COUNT 3.49 mill/uL (4.2-5.4); RED CELL DISTRIBUTION WIDTH 13.9 % (11.6-14.6)
[2019-04-18 11:27] LABS: CHLORIDE 106 mEq/L (98-107)
== END 2019-04-18 16:55 | disposition home health service (06) | DRG 720 ==
LOC: ER 16:18 → EDBEDREQSVC 16:38 → MICUSO 17:43 → EDBEDREQTM 17:48 → EDBEDREQ 17:48 → ENRESERV 21:10 → 5EST 04-15 14:12 → UNDODISIN 04-15 16:05 → 5EST 04-15 19:11
PROVIDERS: ADMIT Internal Medicine; ATTEND Internal Medicine
PROC: 5A1955Z Respiratory Ventilation, Greater than 96 Consecutive Hours (ICD-10-PCS; principal; 2019-04-05)
PROC: 0BW1XFZ Revision of Tracheostomy Device in Trachea, External Approach (ICD-10-PCS; 2019-04-05)
PROC: 0BH17EZ Insertion of Endotracheal Airway into Trachea, Via Natural or Artificial Opening (ICD-10-PCS; 2019-04-05)
DX: A41.9 Sepsis, unspecified organism (principal); J96.21 Acute and chronic respiratory failure with hypoxia; I21.4 Non-ST elevation (NSTEMI) myocardial infarction; E87.3 Alkalosis; E46 Unspecified protein-calorie malnutrition; J95.03 Malfunction of tracheostomy stoma; J18.9 Pneumonia, unspecified organism; J45.901 Unspecified asthma with (acute) exacerbation; E11.9 Type 2 diabetes mellitus without complications; D64.9 Anemia, unspecified; I11.9 Hypertensive heart disease without heart failure; E03.9 Hypothyroidism, unspecified; E87.6 Hypokalemia; N39.0 Urinary tract infection, site not specified; G89.4 Chronic pain syndrome; J45.909 Unspecified asthma, uncomplicated; I49.3 Ventricular premature depolarization; Z86.73 Personal history of transient ischemic attack (TIA), and cerebral infarction without residual deficits; I71.9 Aortic aneurysm of unspecified site, without rupture; Z82.49 Family history of ischemic heart disease and other diseases of the circulatory system; Z88.1 Allergy status to other antibiotic agents; Z79.84 Long term (current) use of oral hypoglycemic drugs; Z79.899 Other long term (current) drug therapy; Z88.2 Allergy status to sulfonamides; Z88.8 Allergy status to other drugs, medicaments and biological substances; Z84.89 Family history of other specified conditions; Z68.34 Body mass index [BMI] 34.0-34.9, adult
CPT/HCPCS: 31500; 36415; 36600; 70490; 71045; 71275; 80048; 80053; 80061; 80202; 81003; 82375; 82550; 82553; 82805; 82962; 83605; 83880; 84478; 84484; 84703; 85025; 86850; 86900; 87077; 87804; 92610; 93005; 93970; 94002; 94003; 94640; 99291; J0360; J0456; J0696; J1200; J1650; J2060; J2250; J2270; J2405; J2543; J2704; J3010; J3370; J3480; J3490; J7060; J7626; Q9967

== ENCOUNTER 2019-04-24 21:49 | Inpatient (IN) | payer MEDICAID ==
[~2019-04-24] VITALS: Ht 182.9 cm; Wt 97.5 kg
[~2019-04-24 21:49] MED LIST changes: -BENA10TA74 PO; -CLON0.2T12 PO; -DOCU-138 PO; -FERR-63; -FERR325T23 PO; -IPRATROPIUM/ALBUTEROL 0.5-3(2.5)MG/3ML NEB NEB SCH; -MEDR10TA PO; -VANCOMYCIN 1250MG in DEXTROSE 5% WATER 250ML IV SCH
[2019-04-24] MEDS ORDERED: KETOROLAC 30MG/ML VIAL IV STA (22:21)
[2019-04-24] MEDS ORDERED: ONDANSETRON HCL 4MG/2ML INJ IV STA (22:21)
[2019-04-24] MEDS ORDERED: IPRATROPIUM BROMIDE (0.02%) 0.5MG/2.5ML NEB HHN STA (22:21)
[2019-04-24] MEDS ORDERED: MAGNESIUM 2 G PREMIX 50 ML IV ONE (22:30)
[2019-04-24] MEDS ORDERED: ALBUTEROL (0.083%) 2.5MG/3ML NEB HHN SCH (22:30)
[2019-04-24 22:44] LABS: CHLORIDE 107 mEq/L (98-107)
[2019-04-24 22:45] LABS: BASOPHILS % 0.8 % (0.0-2.0); EOSINOPHILS % 2.9 % (0.0-5.0); HEMATOCRIT. 41.9 % (36.0-48.0); HEMOGLOBIN. 13.9 g/dL (12.0-16.0); LYMPHOCYTES % 21.9 % (20.0-50.0); MEAN CORPUSCULAR HEMOGLOBIN 29.9 pg (28.0-32.0); MEAN CORPUSCULAR VOLUME 89.9 fL (81.0-99.0); MEAN PLATELET VOLUME 9.4 fl (7.4-10.4); MONOCYTES % 6.3 % (2.0-8.0); NEUTROPHILS % 68.1 % (40.0-76.0); PLATELET 245 x1000/uL (130-400); RED BLOOD CELL COUNT 4.66 mill/uL (4.2-5.4); RED CELL DISTRIBUTION WIDTH 14.3 % (11.6-14.6)
[2019-04-24] MEDS ORDERED: ASPIRIN 325MG TABLET PO ONE (23:30)
[2019-04-25 08:23] VITALS: BP 139/86
[2019-04-25 08:30] VITALS: BP 139/86
[2019-04-25] MEDS ORDERED: ACETAMINOPHEN 325MG TABLET PO PRN (10:45)
[2019-04-25] MEDS ORDERED: DEXTROSE 50% WATER 50ML SYRINGE IV PRN (10:45)
[2019-04-25] MEDS ORDERED: ONDANSETRON HCL 4MG/2ML INJ IV PRN (10:45)
[2019-04-25] MEDS ORDERED: IPRATROPIUM/ALBUTEROL 0.5-3(2.5)MG/3ML NEB HHN PRN (10:45)
[2019-04-25] MEDS ORDERED: FUROSEMIDE 20MG/2ML VIAL IVP NR (10:45)
[2019-04-25] MEDS: MORPHINE SULFATE 2 MG/ML CPJ (NOT FOR IM USE) IV PRN ×2 (10:55→17:58)
[2019-04-25 12:00] VITALS: BP 143/97
[2019-04-25] MEDS: BLOOD SUGAR DIAGNOSTIC STRIP TEST SCH ×3 (12:15→21:53)
[2019-04-25] MEDS: INSULIN LISPRO 100 UNITS/ML SUBCUT SCH ×3 (12:16→21:00)
[2019-04-25] MEDS: LORAZEPAM 2MG/ML CPJ IV PRN ×2 (14:50→22:16)
[2019-04-25 16:00] VITALS: BP 133/94
[2019-04-25] MEDS ORDERED: BUDESONIDE 0.5MG/2ML NEB HHN SCH (18:00)
[2019-04-25 20:00] VITALS: BP 141/95
[2019-04-25] MEDS ORDERED: CLONIDINE 0.1MG TABLET PO PRN (20:00)
[2019-04-25] MEDS: HYDROCODONE/ACETAMINOPHEN 5/325MG TABLET PO PRN (20:40)
[2019-04-25] MEDS: FAMOTIDINE 20MG TABLET PO SCH (22:15)
[2019-04-25] MEDS: LABETALOL HCL 200MG TABLET PO SCH (22:16)
[2019-04-25] MEDS: DIPHENHYDRAMINE 50MG/ML VIAL IV PRN (23:54)
[2019-04-26] VITALS: BP 141/95
[2019-04-26 04:00] VITALS: BP 138/89
[2019-04-26] MEDS: MORPHINE SULFATE 2 MG/ML CPJ (NOT FOR IM USE) IV PRN ×3 (06:22→21:37)
[2019-04-26] MEDS: BLOOD SUGAR DIAGNOSTIC STRIP TEST SCH ×4 (07:36→21:00)
[2019-04-26] MEDS: INSULIN LISPRO 100 UNITS/ML SUBCUT SCH ×4 (07:47→21:00)
[2019-04-26 08:00] VITALS: BP 111/85
[2019-04-26] MEDS: DIPHENHYDRAMINE 50MG/ML VIAL IV PRN (08:14)
[2019-04-26] MEDS: LEVOTHYROXINE SODIUM 75MCG TABLET PO SCH (08:15)
[2019-04-26] MEDS: FAMOTIDINE 20MG TABLET PO SCH ×2 (08:44→21:00)
[2019-04-26] MEDS: DOCUSATE SODIUM 100MG CAPSULE PO SCH (08:44)
[2019-04-26] MEDS: LABETALOL HCL 200MG TABLET PO SCH ×2 (08:49→21:36)
[2019-04-26] MEDS: IPRATROPIUM BROMIDE (0.02%) 0.5MG/2.5ML NEB HHN SCH ×4 (10:08→22:08)
[2019-04-26 10:16] LABS: BASOPHILS % 0.4 % (0.0-2.0); EOSINOPHILS % 7.8 % (0.0-5.0); HEMOGLOBIN. 11.8 g/dL (12.0-16.0); LYMPHOCYTES % 33.1 % (20.0-50.0); MEAN CORPUSCULAR HEMOGLOBIN 30.1 pg (28.0-32.0); MEAN CORPUSCULAR VOLUME 89.2 fL (81.0-99.0); MEAN PLATELET VOLUME 8.9 fl (7.4-10.4); MONOCYTES % 6.6 % (2.0-8.0); NEUTROPHILS % 52.1 % (40.0-76.0); PLATELET 233 x1000/uL (130-400); RED BLOOD CELL COUNT 3.92 mill/uL (4.2-5.4); RED CELL DISTRIBUTION WIDTH 14.3 % (11.6-14.6)
[2019-04-26 10:50] LABS: CHLORIDE 105 mEq/L (98-107)
[2019-04-26 12:00] VITALS: BP 118/89
[2019-04-26] MEDS: LEVOFLOXACIN 500MG TABLET PO SCH (13:26)
[2019-04-26] MEDS: LORAZEPAM 2MG/ML CPJ IV PRN ×2 (15:06→23:19)
[2019-04-26 16:00] VITALS: BP 112/82
[2019-04-26] MEDS: HYDROCODONE/ACETAMINOPHEN 5/325MG TABLET PO PRN (19:04)
[2019-04-26 20:00] VITALS: BP_SYST 131; BP_DIAS 90; BP_DIAS 98
[2019-04-27] VITALS: BP 110/77
[2019-04-27] MEDS: DIPHENHYDRAMINE 50MG/ML VIAL IV PRN (01:38)
[2019-04-27] MEDS: MORPHINE SULFATE 2 MG/ML CPJ (NOT FOR IM USE) IV PRN ×2 (03:35→13:07)
[2019-04-27 04:00] VITALS: BP 115/65
[2019-04-27] MEDS: IPRATROPIUM BROMIDE (0.02%) 0.5MG/2.5ML NEB HHN SCH ×3 (05:31→17:10)
[2019-04-27] MEDS: LORAZEPAM 2MG/ML CPJ IV PRN ×3 (06:43→17:10)
[2019-04-27] MEDS: BLOOD SUGAR DIAGNOSTIC STRIP TEST SCH ×3 (07:40→17:40)
[2019-04-27 08:00] VITALS: BP 118/91
[2019-04-27] MEDS: INSULIN LISPRO 100 UNITS/ML SUBCUT SCH ×3 (08:10→18:10)
[2019-04-27] MEDS: DOCUSATE SODIUM 100MG CAPSULE PO SCH (09:27)
[2019-04-27] MEDS: LEVOTHYROXINE SODIUM 75MCG TABLET PO SCH (09:27)
[2019-04-27] MEDS: FAMOTIDINE 20MG TABLET PO SCH (09:27)
[2019-04-27] MEDS: LABETALOL HCL 200MG TABLET PO SCH (09:28)
[2019-04-27 12:00] VITALS: BP 120/86
[2019-04-27 12:14] VITALS: BP 120/86
[2019-04-27] MEDS: LEVOFLOXACIN 500MG TABLET PO SCH (13:07)
[2019-04-27 16:00] VITALS: BP 129/75
[2019-04-30] MEDS ORDERED: LORA-249 MT (13:25)
== END 2019-04-27 21:10 | disposition home or self-care (01) | DRG 143 ==
LOC: ER 21:49 → ENRESERV 04-25 07:46 → 7WST 04-25 08:26
PROVIDERS: ADMIT Internal Medicine; ATTEND Internal Medicine
DX: J95.01 Hemorrhage from tracheostomy stoma (principal); J96.10 Chronic respiratory failure, unspecified whether with hypoxia or hypercapnia; G93.89 Other specified disorders of brain; E44.1 Mild protein-calorie malnutrition; Z99.81 Dependence on supplemental oxygen; E11.9 Type 2 diabetes mellitus without complications; D64.9 Anemia, unspecified; D72.829 Elevated white blood cell count, unspecified; E03.9 Hypothyroidism, unspecified; F41.9 Anxiety disorder, unspecified; J45.909 Unspecified asthma, uncomplicated; I10 Essential (primary) hypertension; G89.4 Chronic pain syndrome; R79.89 Other specified abnormal findings of blood chemistry; Y83.8 Other surgical procedures as the cause of abnormal reaction of the patient, or of later complication, without mention of misadventure at the time of the procedure; I25.10 Atherosclerotic heart disease of native coronary artery without angina pectoris; Z86.73 Personal history of transient ischemic attack (TIA), and cerebral infarction without residual deficits; Z79.899 Other long term (current) drug therapy; Z88.8 Allergy status to other drugs, medicaments and biological substances; Z88.2 Allergy status to sulfonamides; Z79.84 Long term (current) use of oral hypoglycemic drugs; Z68.29 Body mass index [BMI] 29.0-29.9, adult; Y92.89 Other specified places as the place of occurrence of the external cause
CPT/HCPCS: 36415; 71045; 80048; 80053; 82962; 83880; 84484; 85025; 93005; 93970; 94640; 99285; J1200; J1885; J1940; J2060; J2270; J2405; J3475; J7626

== ENCOUNTER 2019-05-09 13:10 | Emergency (ER) | payer MEDICAID ==
[~2019-05-09] VITALS: Ht 162.6 cm; Wt 75.0 kg
[~2019-05-09 13:10] MED LIST changes: -BO1 TP; +LORA-249 MT; -METF-414 MT
[2019-05-09] MEDS ORDERED: HYDROCODONE/ACETAMINOPHEN 5/325MG TABLET PO STA (13:30)
[2019-05-09] MEDS ORDERED: ALBUTEROL (0.083%) 2.5MG/3ML NEB HHN STA (13:30)
[2019-05-09 13:59] LABS: BG BASE EXCESS -0.5 mmol/L (-2.0-2.0); BG CARBOXYHEMOGLOBIN 0.7 % (0.5-1.5); BG DEOXYHEMOGLOBIN 2.9 % (0.0-5.0); BG FRACTION INSPIRED OXYGEN 28; BG HCO3 ACT 23.3 mmol/L (22.0-26.0); BG METHEMOGLOBIN 0.2 % (0.0-1.5); BG OXYGEN SATURATION 97.1 % (92.0-98.5); BG OXYHEMOGLOBIN 96.2 % (94.0-97.0); BG PCO2 35.7 mmHg (35.0-45.0); BG PH 7.433 (7.350-7.450); BG PO2 90.1 mmHg (75.0-100.0); BG SAMPLE SITE RIGHT BRACHIAL; BG TOTAL HEMOGLOBIN 13.2 g/dL (12.0-18.0); BG VENT MODE NASAL CANNULA
[2019-05-09] MEDS ORDERED: IPRATROPIUM BROMIDE (0.02%) 0.5MG/2.5ML NEB HHN ONE (14:00)
[2019-05-09 14:10] LABS: BASOPHILS % 0.9 % (0.0-2.0); EOSINOPHILS % 2.3 % (0.0-5.0); HEMATOCRIT. 36.4 % (36.0-48.0); HEMOGLOBIN. 12.3 g/dL (12.0-16.0); LYMPHOCYTES % 20.6 % (20.0-50.0); MEAN CORPUSCULAR HEMOGLOBIN 30.3 pg (28.0-32.0); MEAN CORPUSCULAR VOLUME 89.6 fL (81.0-99.0); MONOCYTES % 7.2 % (2.0-8.0); PLATELET 230 x1000/uL (130-400); RED BLOOD CELL COUNT 4.06 mill/uL (4.2-5.4); RED CELL DISTRIBUTION WIDTH 14.7 % (11.6-14.6)
[2019-05-09 14:17] LABS: CHLORIDE 108 mEq/L (98-107)
[2019-05-09 14:34] LABS: HCG SCREEN INDETERMINATE
[2019-05-09] MEDS ORDERED: LORAZEPAM 2MG/ML CPJ IV ONE (15:30)
[2019-05-09 19:30] VITALS: BP 133/85
[2019-05-09] MEDS ORDERED: CLONIDINE 0.2MG TABLET PO ONE (21:30)
== END 2019-05-09 21:30 | disposition home or self-care (01) ==
LOC: ER 13:10
DX: R06.03 Acute respiratory distress (principal); M25.552 Pain in left hip; I25.10 Atherosclerotic heart disease of native coronary artery without angina pectoris; I10 Essential (primary) hypertension; E11.9 Type 2 diabetes mellitus without complications; J45.909 Unspecified asthma, uncomplicated; Z88.2 Allergy status to sulfonamides; Z88.5 Allergy status to narcotic agent; Z79.899 Other long term (current) drug therapy
CPT/HCPCS: 36415; 36600; 71045; 73502; 80053; 82375; 82805; 84702; 84703; 85025; 94640; 96374; 99285; J2060; Z7610

== ENCOUNTER 2019-05-10 11:34 | Inpatient (IN) | payer MEDICAID ==
[~2019-05-10] VITALS: Ht 165.1 cm; Wt 101.6 kg
[2019-05-10] MEDS ORDERED: METHYLPREDNISOLONE SOD SUCC 125 MG/2 ML VIAL IV STA (11:44)
[2019-05-10] MEDS ORDERED: IPRATROPIUM BROMIDE (0.02%) 0.5MG/2.5ML NEB HHN STA (11:44)
[2019-05-10] MEDS ORDERED: PIPERACILLIN/TAZ 3.375G PREMIX 50 ML IV ONE (11:45)
[2019-05-10] MEDS ORDERED: VANCOMYCIN 1 G PREMIX 200 ML IV ONE (11:45)
[2019-05-10] MEDS ORDERED: IPRATROPIUM BROMIDE (0.02%) 0.5MG/2.5ML NEB ONE (11:49)
[2019-05-10 12:13] LABS: BG BASE EXCESS -4.2 mmol/L (-2.0-2.0); BG CARBOXYHEMOGLOBIN 0.8 % (0.5-1.5); BG DEOXYHEMOGLOBIN 0.2 % (0.0-5.0); BG FRACTION INSPIRED OXYGEN 60; BG HCO3 ACT 20.8 mmol/L (22.0-26.0); BG METHEMOGLOBIN 0.4 % (0.0-1.5); BG OXYGEN SATURATION 99.8 % (92.0-98.5); BG OXYHEMOGLOBIN 98.6 % (94.0-97.0); BG PH 7.356 (7.350-7.450); BG SAMPLE SITE RIGHT BRACHIAL; BG TOTAL HEMOGLOBIN 13.5 g/dL (12.0-18.0)
[2019-05-10] MEDS ORDERED: MORPHINE SULFATE 4 MG/ML CPJ (NOT FOR IM USE) IV ONE (12:30)
[2019-05-10 13:26] LABS: HEMATOCRIT. 40.4 % (36.0-48.0); HEMOGLOBIN. 13.5 g/dL (12.0-16.0); MEAN CORPUSCULAR HEMOGLOBIN 30.1 pg (28.0-32.0); MEAN CORPUSCULAR VOLUME 90.4 fL (81.0-99.0); MEAN PLATELET VOLUME 9.3 fl (7.4-10.4); PLATELET 203 x1000/uL (130-400); RED BLOOD CELL COUNT 4.47 mill/uL (4.2-5.4); RED CELL DISTRIBUTION WIDTH 15.1 % (11.6-14.6)
[2019-05-10 13:34] LABS: PROTHROMBIN TIME 11.1 sec (9.6-11.0)
[2019-05-10 13:42] LABS: CHLORIDE 107 mEq/L (98-107)
[2019-05-10 13:55] LABS: PLATELET ESTIMATE NORMAL
[2019-05-10] MEDS ORDERED: LORAZEPAM 2MG/ML CPJ IV ONE (14:15)
[2019-05-10] MEDS: SIMETHICONE 80MG TABLET CHEW PO PRN ×2 (14:58→21:15)
[2019-05-10] MEDS ORDERED: ONDANSETRON HCL 4MG/2ML INJ IV PRN (16:15)
[2019-05-10] MEDS ORDERED: IPRATROPIUM/ALBUTEROL 0.5-3(2.5)MG/3ML NEB NEB SCH (16:15)
[2019-05-10] MEDS ORDERED: ACETAMINOPHEN 325MG TABLET PO PRN (16:15)
[2019-05-10 17:55] VITALS: BP 158/115
[2019-05-10 18:01] VITALS: BP 158/115
[2019-05-10] MEDS ORDERED: CLONIDINE 0.1MG TABLET PO SCH (18:45)
[2019-05-10] MEDS ORDERED: HYDRALAZINE 20MG/ML VIAL IV PRN (19:33)
[2019-05-10] MEDS ORDERED: CLONIDINE 0.1MG TABLET PO PRN (19:35)
[2019-05-10 20:00] VITALS: BP 139/98
[2019-05-10] MEDS: SODIUM CHLORIDE 0.9% 1,000 ML IV SCH (20:26)
[2019-05-10] MEDS: PIPERACILLIN/TAZOBACTAM 3.375 G in DEXTROSE 5% WATER 50 ML IV SCH (21:15)
[2019-05-10] MEDS: HEPARIN 5000 UNITS/ML VIAL SUBCUT SCH (21:16)
[2019-05-10] MEDS: LORAZEPAM 0.5MG TABLET PO PRN (21:17)
[2019-05-10] MEDS: DIPHENHYDRAMINE 50MG CAPSULE PO PRN (21:17)
[2019-05-10] MEDS: LABETALOL HCL 200MG TABLET PO SCH (21:17)
[2019-05-10 22:00] VITALS: BP 130/89
[2019-05-10] MEDS ORDERED: VANCOMYCIN 1 G PREMIX 200 ML IV SCH (22:00)
[2019-05-11] VITALS (9 sets, daily range): BP systolic 111–150; BP diastolic 35–100
[2019-05-11] MEDS: ACETYLCYSTEINE 100MG/ML 10% VIAL 4ML INH SCH ×4 (00:41→22:11)
[2019-05-11] MEDS: IPRATROPIUM/ALBUTEROL 0.5-3(2.5)MG/3ML NEB NEB PRN ×2 (00:46→08:35)
[2019-05-11] MEDS: PIPERACILLIN/TAZOBACTAM 3.375 G in DEXTROSE 5% WATER 50 ML IV SCH ×2 (03:34→09:58)
[2019-05-11] MEDS: HYDROCODONE/ACETAMINOPHEN 10/325MG TABLET PO PRN ×2 (05:09→15:20)
[2019-05-11] MEDS ORDERED: VANCOMYCIN HCL 750 MG in DEXT 5% WATER 250 ML IV SCH (06:00)
[2019-05-11] MEDS ORDERED: DEXTROSE 50% WATER 50ML SYRINGE IV PRN ×2 (08:30)
[2019-05-11] MEDS: SODIUM CHLORIDE 0.9% 1,000 ML IV SCH ×2 (08:30→23:06)
[2019-05-11] MEDS ORDERED: IPRATROPIUM/ALBUTEROL 0.5-3(2.5)MG/3ML NEB NEB SCH (09:00)
[2019-05-11] MEDS: LEVOTHYROXINE SODIUM 75MCG TABLET PO SCH (09:58)
[2019-05-11] MEDS: DOCUSATE SODIUM 250MG CAPSULE PO SCH (09:58)
[2019-05-11] MEDS: LABETALOL HCL 200MG TABLET PO SCH ×2 (09:59→21:53)
[2019-05-11] MEDS: HYDRALAZINE HCL 10MG TABLET PO SCH ×4 (09:59→21:40)
[2019-05-11] MEDS: HEPARIN 5000 UNITS/ML VIAL SUBCUT SCH ×2 (10:00→21:54)
[2019-05-11] MEDS: LORAZEPAM 2MG/ML CPJ IV PRN ×4 (10:01→21:56)
[2019-05-11 10:09] LABS: HEMATOCRIT. 37.2 % (36.0-48.0); HEMOGLOBIN. 12.4 g/dL (12.0-16.0); MEAN CORPUSCULAR VOLUME 90.2 fL (81.0-99.0); RED BLOOD CELL COUNT 4.13 mill/uL (4.2-5.4); RED CELL DISTRIBUTION WIDTH 14.8 % (11.6-14.6)
[2019-05-11 10:12] LABS: CHLORIDE 105 mEq/L (98-107)
[2019-05-11 11:51] LABS: PLATELET ESTIMATE NORMAL
[2019-05-11] MEDS: BLOOD SUGAR DIAGNOSTIC STRIP TEST SCH ×3 (13:09→21:00)
[2019-05-11] MEDS: INSULIN LISPRO 100 UNITS/ML SUBCUT SCH ×3 (13:35→21:00)
[2019-05-11] MEDS: SIMETHICONE 80MG TABLET CHEW PO PRN ×2 (17:49→21:55)
[2019-05-11] MEDS: PIPERACILLIN/TAZOBACTAM 3.375 G in DEXT 5% WATER 100 ML IV SCH (18:52)
[2019-05-11] MEDS ORDERED: IPRATROPIUM BROMIDE (0.02%) 0.5MG/2.5ML NEB ONE (22:11)
[2019-05-11] MEDS: VANCOMYCIN 1250MG in DEXTROSE 5% WATER 250ML IV SCH (23:07)
[2019-05-11] MEDS: DIPHENHYDRAMINE 50MG CAPSULE PO PRN (23:08)
[2019-05-12] VITALS (12 sets, daily range): BP systolic 107–155; BP diastolic 69–100
[2019-05-12] MEDS: PIPERACILLIN/TAZOBACTAM 3.375 G in DEXT 5% WATER 100 ML IV SCH ×5 (01:21→23:57)
[2019-05-12] MEDS: HYDROCODONE/ACETAMINOPHEN 10/325MG TABLET PO PRN ×2 (04:15→11:31)
[2019-05-12] MEDS: SIMETHICONE 80MG TABLET CHEW PO PRN ×2 (06:42→20:55)
[2019-05-12 07:18] LABS: BASOPHILS % 0.5 % (0.0-2.0); EOSINOPHILS % 2.1 % (0.0-5.0); HEMATOCRIT. 35.1 % (36.0-48.0); HEMOGLOBIN. 11.8 g/dL (12.0-16.0); LYMPHOCYTES % 22.7 % (20.0-50.0); MEAN CORPUSCULAR HEMOGLOBIN 30.2 pg (28.0-32.0); MEAN PLATELET VOLUME 9.4 fl (7.4-10.4); MONOCYTES % 7.5 % (2.0-8.0); NEUTROPHILS % 67.2 % (40.0-76.0); PLATELET 144 x1000/uL (130-400); RED CELL DISTRIBUTION WIDTH 14.9 % (11.6-14.6)
[2019-05-12] MEDS: BLOOD SUGAR DIAGNOSTIC STRIP TEST SCH ×4 (07:30→20:55)
[2019-05-12 07:40] LABS: CHLORIDE 108 mEq/L (98-107)
[2019-05-12] MEDS: INSULIN LISPRO 100 UNITS/ML SUBCUT SCH ×4 (08:00→20:55)
[2019-05-12] MEDS: ACETYLCYSTEINE 100MG/ML 10% VIAL 4ML INH SCH ×2 (08:12→16:35)
[2019-05-12] MEDS: LEVOTHYROXINE SODIUM 75MCG TABLET PO SCH (08:33)
[2019-05-12] MEDS: DOCUSATE SODIUM 250MG CAPSULE PO SCH (08:33)
[2019-05-12] MEDS: LABETALOL HCL 200MG TABLET PO SCH ×2 (08:33→20:55)
[2019-05-12] MEDS: VANCOMYCIN 1250MG in DEXTROSE 5% WATER 250ML IV SCH (08:33)
[2019-05-12] MEDS: HEPARIN 5000 UNITS/ML VIAL SUBCUT SCH ×2 (08:35→20:55)
[2019-05-12] MEDS: SODIUM CHLORIDE 0.9% 1,000 ML IV SCH ×2 (08:36→22:00)
[2019-05-12] MEDS: LORAZEPAM 2MG/ML CPJ IV PRN ×3 (10:37→23:58)
[2019-05-12] MEDS: HYDRALAZINE HCL 10MG TABLET PO SCH ×2 (13:39→18:27)
[2019-05-12] MEDS: DIPHENHYDRAMINE 50MG CAPSULE PO PRN ×2 (14:30→23:58)
[2019-05-12] MEDS: VANCOMYCIN 1 G PREMIX 200 ML IV SCH (20:53)
[2019-05-13] VITALS (13 sets, daily range): BP systolic 118–142; BP diastolic 38–98
[2019-05-13] MEDS: ACETYLCYSTEINE 100MG/ML 10% VIAL 4ML INH SCH ×2 (00:47→21:50)
[2019-05-13] MEDS: IPRATROPIUM/ALBUTEROL 0.5-3(2.5)MG/3ML NEB NEB PRN (00:48)
[2019-05-13] MEDS: LORAZEPAM 2MG/ML CPJ IV PRN ×3 (04:40→20:55)
[2019-05-13] MEDS: PIPERACILLIN/TAZOBACTAM 3.375 G in DEXT 5% WATER 100 ML IV SCH ×4 (05:42→23:56)
[2019-05-13] MEDS: LEVOTHYROXINE SODIUM 75MCG TABLET PO SCH (07:30)
[2019-05-13] MEDS: BLOOD SUGAR DIAGNOSTIC STRIP TEST SCH ×4 (07:39→20:55)
[2019-05-13] MEDS: INSULIN LISPRO 100 UNITS/ML SUBCUT SCH ×4 (08:00→20:52)
[2019-05-13] MEDS: HYDRALAZINE HCL 10MG TABLET PO SCH ×4 (08:36→18:43)
[2019-05-13] MEDS: VANCOMYCIN 1 G PREMIX 200 ML IV SCH ×2 (08:36→20:53)
[2019-05-13] MEDS: LABETALOL HCL 200MG TABLET PO SCH ×3 (08:37→20:55)
[2019-05-13] MEDS: HEPARIN 5000 UNITS/ML VIAL SUBCUT SCH ×3 (08:37→20:53)
[2019-05-13] MEDS: DOCUSATE SODIUM 250MG CAPSULE PO SCH (08:37)
[2019-05-13 11:03] LABS: CHLORIDE 115 mEq/L (98-107)
[2019-05-13] MEDS: SIMETHICONE 80MG TABLET CHEW PO PRN ×2 (12:12→22:05)
[2019-05-13] MEDS ORDERED: POTASSIUM CHLORIDE 20MEQ/PACKET PO NR (13:15)
[2019-05-13] MEDS ORDERED: POLYETHYLENE GLYCOL 3350 (17GM) 1 DOSE PACK PO PRN (14:45)
[2019-05-13] MEDS ORDERED: BISACODYL 10MG SUPP PR PRN (14:45)
[2019-05-13] MEDS ORDERED: SENNOSIDES/DOCUSATE SOD 8.6/50MG TABLET PO PRN (14:45)
[2019-05-13] MEDS ORDERED: DOCUSATE SODIUM 100MG CAPSULE PO PRN (14:45)
[2019-05-13] MEDS ORDERED: MAGNESIUM HYDROXIDE 400MG/5ML 30ML UDC PO PRN (14:45)
[2019-05-13] MEDS ORDERED: MAGNESIUM 2 G PREMIX 50 ML IV SCH (15:00)
[2019-05-13] MEDS ORDERED: MAGNESIUM CITRATE 300ML SOLUTION PO NR (15:00)
[2019-05-13] MEDS: LORAZEPAM 0.5MG TABLET PO PRN (18:49)
[2019-05-13] MEDS: SODIUM CHLORIDE 0.9% 1,000 ML IV SCH ×2 (20:53→22:43)
[2019-05-13] MEDS: DIPHENHYDRAMINE 50MG CAPSULE PO PRN (20:55)
[2019-05-14] VITALS (9 sets, daily range): BP systolic 116–185; BP diastolic 59–99
[2019-05-14] MEDS: LORAZEPAM 2MG/ML CPJ IV PRN ×2 (02:08→09:48)
[2019-05-14] MEDS: HYDROCODONE/ACETAMINOPHEN 10/325MG TABLET PO PRN (03:51)
[2019-05-14] MEDS: SIMETHICONE 80MG TABLET CHEW PO PRN ×2 (04:54→09:49)
[2019-05-14] MEDS: PIPERACILLIN/TAZOBACTAM 3.375 G in DEXT 5% WATER 100 ML IV SCH ×2 (05:50→12:30)
[2019-05-14 06:04] LABS: CHLORIDE 111 mEq/L (98-107)
[2019-05-14 06:15] LABS: BASOPHILS % 0.2 % (0.0-2.0); EOSINOPHILS % 3.7 % (0.0-5.0); HEMATOCRIT. 35.4 % (36.0-48.0); HEMOGLOBIN. 11.7 g/dL (12.0-16.0); LYMPHOCYTES % 15.2 % (20.0-50.0); MEAN CORPUSCULAR HEMOGLOBIN 29.9 pg (28.0-32.0); MEAN CORPUSCULAR VOLUME 90.6 fL (81.0-99.0); MEAN PLATELET VOLUME 8.6 fl (7.4-10.4); MONOCYTES % 7.8 % (2.0-8.0); NEUTROPHILS % 73.1 % (40.0-76.0); PLATELET 207 x1000/uL (130-400); RED BLOOD CELL COUNT 3.91 mill/uL (4.2-5.4)
[2019-05-14] MEDS: INSULIN LISPRO 100 UNITS/ML SUBCUT SCH ×2 (08:00→13:00)
[2019-05-14] MEDS: BLOOD SUGAR DIAGNOSTIC STRIP TEST SCH ×2 (08:28→12:34)
[2019-05-14] MEDS: ACETYLCYSTEINE 100MG/ML 10% VIAL 4ML INH SCH ×2 (08:43→15:59)
[2019-05-14] MEDS: DOCUSATE SODIUM 250MG CAPSULE PO SCH (09:00)
[2019-05-14] MEDS: VANCOMYCIN 1 G PREMIX 200 ML IV SCH (09:48)
[2019-05-14] MEDS: LEVOTHYROXINE SODIUM 75MCG TABLET PO SCH (09:49)
[2019-05-14] MEDS: LABETALOL HCL 200MG TABLET PO SCH (09:51)
[2019-05-14] MEDS: HYDRALAZINE HCL 10MG TABLET PO SCH ×2 (09:51→13:00)
[2019-05-14] MEDS: HEPARIN 5000 UNITS/ML VIAL SUBCUT SCH (09:53)
[2019-05-14] MEDS ORDERED: POTASSIUM CHLORIDE 20MEQ/PACKET PO NR (12:00)
[2019-05-14] MEDS ORDERED: VANCOMYCIN 1,000 MG in DEXT 5% WATER 250 ML IV SCH (21:00)
== END 2019-05-14 18:15 | disposition home or self-care (01) | DRG 720 ==
LOC: ER 11:34 → EDBEDREQ 15:37 → EDBEDREQSVC 15:37 → EDBEDREQTM 15:44 → EDBEDREQSVC 15:44 → EDBEDREQ 15:44 → ENRESERV 15:46 → 5EST 18:35
PROVIDERS: ADMIT Family Medicine Adult Medicine; ATTEND Family Medicine Adult Medicine
DX: A41.9 Sepsis, unspecified organism (principal); T17.490A Other foreign object in trachea causing asphyxiation, initial encounter; J39.8 Other specified diseases of upper respiratory tract; E11.9 Type 2 diabetes mellitus without complications; E03.9 Hypothyroidism, unspecified; D64.9 Anemia, unspecified; F41.9 Anxiety disorder, unspecified; I10 Essential (primary) hypertension; G89.4 Chronic pain syndrome; J40 Bronchitis, not specified as acute or chronic; Z82.49 Family history of ischemic heart disease and other diseases of the circulatory system; Z86.73 Personal history of transient ischemic attack (TIA), and cerebral infarction without residual deficits
CPT/HCPCS: 36415; 36600; 71045; 80053; 80202; 82375; 82805; 82962; 83036; 83605; 83735; 83880; 84145; 84443; 84484; 85025; 87070; 87186; 87804; 92610; 93005; 94640; 96374; 99285; J1644; J1815; J2060; J2270; J2405; J2543; J2930; J3370; J3475; J7060; J7608; Q0163

== ENCOUNTER 2019-05-23 02:48 | Emergency (ER) | payer MEDICAID ==
[~2019-05-23] VITALS: Ht 170.2 cm; Wt 86.0 kg
[2019-05-23] MEDS ORDERED: IPRATROPIUM BROMIDE (0.02%) 0.5MG/2.5ML NEB HHN STA (03:20)
[2019-05-23] MEDS ORDERED: ONDANSETRON HCL 4MG/2ML INJ IV STA (03:20)
[2019-05-23] MEDS ORDERED: ALBUTEROL (0.083%) 2.5MG/3ML NEB HHN STA (03:20)
[2019-05-23] MEDS ORDERED: HYDROCODONE/ACETAMINOPHEN 5/325MG TABLET PO ONE (07:45)
[2019-05-23 08:13] VITALS: BP 129/90
== END 2019-05-23 08:16 | disposition home or self-care (01) ==
LOC: ER 02:48
DX: T82.598A Other mechanical complication of other cardiac and vascular devices and implants, initial encounter (principal); J98.8 Other specified respiratory disorders; E11.9 Type 2 diabetes mellitus without complications; I10 Essential (primary) hypertension; Z86.73 Personal history of transient ischemic attack (TIA), and cerebral infarction without residual deficits; Z93.0 Tracheostomy status; Z79.899 Other long term (current) drug therapy; Z88.2 Allergy status to sulfonamides; Z88.5 Allergy status to narcotic agent; Y92.89 Other specified places as the place of occurrence of the external cause
CPT/HCPCS: 71045; 99283; Z7610

== ENCOUNTER 2019-06-09 15:55 | Inpatient (IN) | payer MEDICAID ==
[~2019-06-09] VITALS: Ht 165.1 cm; Wt 90.3 kg
[2019-06-09] MEDS ORDERED: ALBUTEROL (0.083%) 2.5MG/3ML NEB HHN STA (17:43)
[2019-06-09] MEDS ORDERED: IPRATROPIUM BROMIDE (0.02%) 0.5MG/2.5ML NEB HHN STA (17:43)
[2019-06-09] MEDS ORDERED: LORAZEPAM 1MG TABLET PO ONE (17:45)
[2019-06-09 18:25] LABS: BASOPHILS % 0.5 % (0.0-2.0); EOSINOPHILS % 1.7 % (0.0-5.0); HEMATOCRIT. 42.1 % (36.0-48.0); LYMPHOCYTES % 18.4 % (20.0-50.0); MEAN CORPUSCULAR HEMOGLOBIN 29.8 pg (28.0-32.0); MEAN CORPUSCULAR VOLUME 89.7 fL (81.0-99.0); MONOCYTES % 7.4 % (2.0-8.0); RED BLOOD CELL COUNT 4.69 mill/uL (4.2-5.4); RED CELL DISTRIBUTION WIDTH 14.5 % (11.6-14.6)
[2019-06-09 18:26] LABS: CHLORIDE 109 mEq/L (98-107)
[2019-06-09] MEDS ORDERED: HYDROCODONE/ACETAMINOPHEN 5/325MG TABLET PO ONE (18:45)
[2019-06-09 20:03] LABS: HCG SCREEN NEGATIVE
[2019-06-09] MEDS ORDERED: DOCUSATE SODIUM 100MG CAPSULE PO PRN (23:45)
[2019-06-09] MEDS ORDERED: IPRATROPIUM/ALBUTEROL 0.5-3(2.5)MG/3ML NEB NEB PRN (23:45)
[2019-06-09] MEDS ORDERED: ACETAMINOPHEN 325MG TABLET PO PRN (23:45)
[2019-06-09] MEDS ORDERED: MAGNESIUM/ALUMINUM HYDROXIDE/SIMETHICONE 30ML UDC PO PRN (23:45)
[2019-06-10] VITALS (9 sets, daily range): BP systolic 116–153; BP diastolic 70–109
[2019-06-10] MEDS: HYDROCODONE/ACETAMINOPHEN 5/325MG TABLET PO PRN ×4 (04:04→23:25)
[2019-06-10] MEDS: METHYLPREDNISOLONE SOD SUCC 40 MG/ML VIAL IV SCH ×2 (05:57→13:23)
[2019-06-10 06:56] LABS: BASOPHILS % 0.4 % (0.0-2.0); EOSINOPHILS % 2.1 % (0.0-5.0); HEMATOCRIT. 37.2 % (36.0-48.0); HEMOGLOBIN. 12.7 g/dL (12.0-16.0); LYMPHOCYTES % 28.5 % (20.0-50.0); MEAN CORPUSCULAR HEMOGLOBIN 30.5 pg (28.0-32.0); MEAN CORPUSCULAR VOLUME 89.4 fL (81.0-99.0); MEAN PLATELET VOLUME 8.8 fl (7.4-10.4); MONOCYTES % 8.9 % (2.0-8.0); NEUTROPHILS % 60.1 % (40.0-76.0); PLATELET 205 x1000/uL (130-400); RED BLOOD CELL COUNT 4.17 mill/uL (4.2-5.4); RED CELL DISTRIBUTION WIDTH 14.3 % (11.6-14.6)
[2019-06-10 07:13] LABS: CHLORIDE 108 mEq/L (98-107)
[2019-06-10 07:23] LABS: LDL CHOLESTEROL 104 mg/dL (5-100)
[2019-06-10 07:25] LABS: CREATINE KINASE 43 IU/L (26-192); HDL CHOLESTEROL 47 mg/dL (40-59)
[2019-06-10 07:28] LABS: CREATINE KINASE MB FRACTION 1.6 ng/mL (0.5-3.6)
[2019-06-10] MEDS: ENOXAPARIN 40MG/0.4ML SYR SUBCUT SCH (08:08)
[2019-06-10] MEDS: DIPHENHYDRAMINE 50MG/ML VIAL IV PRN ×2 (15:16→21:40)
[2019-06-10] MEDS: ONDANSETRON HCL 4MG/2ML INJ IV PRN (18:50)
[2019-06-10] MEDS: IPRATROPIUM/ALBUTEROL 0.5-3(2.5)MG/3ML NEB HHN SCH (20:35)
[2019-06-10] MEDS: ACETYLCYSTEINE 100MG/ML 10% VIAL 4ML INH SCH (20:37)
[2019-06-11] VITALS (13 sets, daily range): BP systolic 124–174; BP diastolic 81–119
[2019-06-11] MEDS: CLONIDINE 0.1MG TABLET PO PRN ×2 (02:12→23:33)
[2019-06-11] MEDS: HYDROCODONE/ACETAMINOPHEN 5/325MG TABLET PO PRN ×3 (02:48→20:40)
[2019-06-11] MEDS: DIPHENHYDRAMINE 50MG/ML VIAL IV PRN ×2 (02:48→11:20)
[2019-06-11] MEDS: IPRATROPIUM/ALBUTEROL 0.5-3(2.5)MG/3ML NEB HHN SCH ×3 (06:00→21:55)
[2019-06-11] MEDS: ENOXAPARIN 40MG/0.4ML SYR SUBCUT SCH (08:59)
[2019-06-11] MEDS: ACETYLCYSTEINE 100MG/ML 10% VIAL 4ML INH SCH ×2 (09:00→21:55)
[2019-06-11] MEDS ORDERED: MORPHINE SULFATE 2 MG/ML CPJ (NOT FOR IM USE) IV SCH (13:30)
[2019-06-11] MEDS: ONDANSETRON HCL 4MG/2ML INJ IV PRN (16:05)
[2019-06-11] MEDS: LORAZEPAM 1MG TABLET PO PRN ×2 (17:31→23:32)
[2019-06-12] VITALS (10 sets, daily range): BP systolic 102–193; BP diastolic 20–102
[2019-06-12] MEDS: HYDROCODONE/ACETAMINOPHEN 5/325MG TABLET PO PRN ×3 (04:42→14:19)
[2019-06-12] MEDS: DIPHENHYDRAMINE 50MG/ML VIAL IV PRN ×2 (07:51→16:58)
[2019-06-12] MEDS: IPRATROPIUM/ALBUTEROL 0.5-3(2.5)MG/3ML NEB HHN SCH ×2 (07:54→16:21)
[2019-06-12] MEDS: ACETYLCYSTEINE 100MG/ML 10% VIAL 4ML INH SCH ×2 (08:21→16:21)
[2019-06-12] MEDS: ENOXAPARIN 40MG/0.4ML SYR SUBCUT SCH (08:52)
[2019-06-12] MEDS: CLONIDINE 0.1MG TABLET PO PRN (10:15)
[2019-06-12] MEDS ORDERED: LABETALOL HCL 200MG TABLET PO SCH (11:00)
[2019-06-12] MEDS ORDERED: HYDRALAZINE HCL 10MG TABLET PO SCH (12:00)
== END 2019-06-12 19:01 | disposition home health service (06) | DRG 133 ==
LOC: ER 15:55 → 5EST 23:27 → EDBEDREQTM 23:30 → EDBEDREQ 23:30 → ENRESERV 06-10 02:08
PROVIDERS: ADMIT Internal Medicine; ATTEND Internal Medicine
DX: J96.20 Acute and chronic respiratory failure, unspecified whether with hypoxia or hypercapnia (principal); Z93.0 Tracheostomy status; T17.990A Other foreign object in respiratory tract, part unspecified in causing asphyxiation, initial encounter; D64.9 Anemia, unspecified; F41.1 Generalized anxiety disorder; E03.9 Hypothyroidism, unspecified; E11.9 Type 2 diabetes mellitus without complications; G89.4 Chronic pain syndrome; I10 Essential (primary) hypertension; J45.909 Unspecified asthma, uncomplicated; X58.XXXA Exposure to other specified factors, initial encounter; Z86.73 Personal history of transient ischemic attack (TIA), and cerebral infarction without residual deficits; Z88.2 Allergy status to sulfonamides; Z88.8 Allergy status to other drugs, medicaments and biological substances; Z79.891 Long term (current) use of opiate analgesic; Z79.890 Hormone replacement therapy; Z79.899 Other long term (current) drug therapy; Z74.01 Bed confinement status; Y93.89 Activity, other specified; Y92.89 Other specified places as the place of occurrence of the external cause; Y99.8 Other external cause status
CPT/HCPCS: 36415; 71045; 80048; 80053; 80061; 82550; 82553; 83880; 84443; 84484; 84703; 85025; 93005; 93970; 94640; 94660; 99285; J1200; J1650; J2270; J2405; J2920; J7608

== ENCOUNTER 2019-06-22 21:45 | Inpatient (IN) | payer MEDICAID ==
[~2019-06-22] VITALS: Ht 175.3 cm; Wt 95.9 kg
[2019-06-22] MEDS ORDERED: CLONIDINE 0.2MG TABLET PO ONE (23:15)
[2019-06-22] MEDS ORDERED: IPRATROPIUM BROMIDE (0.02%) 0.5MG/2.5ML NEB HHN ONE (23:15)
[2019-06-22] MEDS ORDERED: AMLODIPINE 5MG TABLET PO ONE (23:15)
[2019-06-22] MEDS ORDERED: LORAZEPAM 1MG TABLET PO ONE (23:15)
[2019-06-23] MEDS ORDERED: ACETAMINOPHEN 500MG TABLET PO ONE (00:45)
[2019-06-23 07:08] LABS: BASOPHILS % 0.4 % (0.0-2.0); EOSINOPHILS % 2.4 % (0.0-5.0); HEMATOCRIT. 36.5 % (36.0-48.0); LYMPHOCYTES % 32.6 % (20.0-50.0); MEAN CORPUSCULAR HEMOGLOBIN 29.9 pg (28.0-32.0); MEAN CORPUSCULAR VOLUME 90.8 fL (81.0-99.0); MEAN PLATELET VOLUME 8.5 fl (7.4-10.4); MONOCYTES % 6.1 % (2.0-8.0); NEUTROPHILS % 58.5 % (40.0-76.0); PLATELET 146 x1000/uL (130-400); RED BLOOD CELL COUNT 4.02 mill/uL (4.2-5.4); RED CELL DISTRIBUTION WIDTH 14.6 % (11.6-14.6)
[2019-06-23 07:14] LABS: PROTHROMBIN TIME 10.6 sec (9.6-11.0)
[2019-06-23 07:15] LABS: CHLORIDE 109 mEq/L (98-107)
[2019-06-23 12:20] VITALS: BP 111/72
[2019-06-23] MEDS ORDERED: IPRATROPIUM/ALBUTEROL 0.5-3(2.5)MG/3ML NEB HHN PRN (13:15)
[2019-06-23] MEDS: LORAZEPAM 2MG/ML CPJ IV PRN (13:38)
[2019-06-23] MEDS ORDERED: CLONIDINE 0.1MG TABLET PO PRN (13:45)
[2019-06-23] MEDS: ENOXAPARIN 40MG/0.4ML SYR SUBCUT SCH (14:00)
[2019-06-23] MEDS: BUDESONIDE 0.5MG/2ML NEB HHN SCH (19:57)
[2019-06-23 20:00] VITALS: BP 122/56
[2019-06-23] MEDS: ATORVASTATIN CALCIUM 40MG TABLET PO SCH (20:36)
[2019-06-23] MEDS: AMLODIPINE 5MG TABLET PO SCH (20:36)
[2019-06-23] MEDS: MORPHINE SULFATE 2 MG/ML CPJ (NOT FOR IM USE) IV PRN (20:38)
[2019-06-23 22:00] VITALS: BP 158/117
[2019-06-24] VITALS (13 sets, daily range): BP systolic 122–161; BP diastolic 89–113
[2019-06-24] MEDS: IPRATROPIUM/ALBUTEROL 0.5-3(2.5)MG/3ML NEB HHN SCH ×3 (00:10→15:30)
[2019-06-24] MEDS: LORAZEPAM 2MG/ML CPJ IV PRN (01:45)
[2019-06-24] MEDS ORDERED: HYDRALAZINE 20MG/ML VIAL IV PRN (01:45)
[2019-06-24] MEDS: DIPHENHYDRAMINE 50MG/ML VIAL IV PRN ×3 (01:45→23:40)
[2019-06-24 06:58] LABS: BASOPHILS % 0.6 % (0.0-2.0); EOSINOPHILS % 2.4 % (0.0-5.0); HEMATOCRIT. 34.3 % (36.0-48.0); HEMOGLOBIN. 11.7 g/dL (12.0-16.0); LYMPHOCYTES % 26.4 % (20.0-50.0); MEAN CORPUSCULAR HEMOGLOBIN 30.1 pg (28.0-32.0); MEAN CORPUSCULAR VOLUME 88.5 fL (81.0-99.0); MONOCYTES % 6.3 % (2.0-8.0); NEUTROPHILS % 64.3 % (40.0-76.0); RED BLOOD CELL COUNT 3.88 mill/uL (4.2-5.4); RED CELL DISTRIBUTION WIDTH 14.3 % (11.6-14.6)
[2019-06-24 07:34] LABS: CHLORIDE 108 mEq/L (98-107)
[2019-06-24 08:18] LABS: PLATELET 136 x1000/uL (130-400)
[2019-06-24] MEDS: BUDESONIDE 0.5MG/2ML NEB HHN SCH ×2 (08:41→19:42)
[2019-06-24] MEDS: MORPHINE SULFATE 2 MG/ML CPJ (NOT FOR IM USE) IV PRN ×4 (08:45→23:40)
[2019-06-24] MEDS: LEVOTHYROXINE SODIUM 75MCG TABLET PO SCH (08:46)
[2019-06-24] MEDS: ENOXAPARIN 40MG/0.4ML SYR SUBCUT SCH (08:46)
[2019-06-24] MEDS: ASPIRIN 81MG TABLET PO SCH (08:46)
[2019-06-24] MEDS: AMLODIPINE 5MG TABLET PO SCH ×2 (08:46→20:02)
[2019-06-24] MEDS ORDERED: POTASSIUM CHLORIDE 20MEQ TABLET SR PO NR (15:45)
[2019-06-24] MEDS: ATORVASTATIN CALCIUM 40MG TABLET PO SCH (20:01)
[2019-06-25] VITALS (12 sets, daily range): BP systolic 126–151; BP diastolic 89–116
[2019-06-25] MEDS: IPRATROPIUM/ALBUTEROL 0.5-3(2.5)MG/3ML NEB HHN SCH ×3 (01:38→15:42)
[2019-06-25] MEDS: DIPHENHYDRAMINE 50MG/ML VIAL IV PRN (06:46)
[2019-06-25] MEDS: MORPHINE SULFATE 2 MG/ML CPJ (NOT FOR IM USE) IV PRN ×3 (06:54→18:55)
[2019-06-25 07:22] LABS: BASOPHILS % 0.5 % (0.0-2.0); EOSINOPHILS % 2.5 % (0.0-5.0); HEMATOCRIT. 38.4 % (36.0-48.0); HEMOGLOBIN. 12.7 g/dL (12.0-16.0); LYMPHOCYTES % 27.8 % (20.0-50.0); MEAN CORPUSCULAR HEMOGLOBIN 29.4 pg (28.0-32.0); MEAN CORPUSCULAR VOLUME 89.1 fL (81.0-99.0); MEAN PLATELET VOLUME 8.1 fl (7.4-10.4); MONOCYTES % 7.3 % (2.0-8.0); NEUTROPHILS % 61.9 % (40.0-76.0); PLATELET 248 x1000/uL (130-400); RED BLOOD CELL COUNT 4.31 mill/uL (4.2-5.4); RED CELL DISTRIBUTION WIDTH 14.4 % (11.6-14.6)
[2019-06-25 08:00] LABS: CHLORIDE 108 mEq/L (98-107)
[2019-06-25] MEDS: ASPIRIN 81MG TABLET PO SCH (08:41)
[2019-06-25] MEDS: AMLODIPINE 5MG TABLET PO SCH ×2 (08:41→20:44)
[2019-06-25] MEDS: LEVOTHYROXINE SODIUM 75MCG TABLET PO SCH (08:42)
[2019-06-25] MEDS: ENOXAPARIN 30MG/0.3ML SYR SUBCUT SCH ×3 (08:43→20:48)
[2019-06-25] MEDS: LORAZEPAM 2MG/ML CPJ IV PRN ×2 (10:53→22:48)
[2019-06-25] MEDS: BUDESONIDE 0.5MG/2ML NEB HHN SCH ×2 (15:42→21:07)
[2019-06-25] MEDS: ATORVASTATIN CALCIUM 40MG TABLET PO SCH (20:43)
[2019-06-26] VITALS (12 sets, daily range): BP systolic 115–158; BP diastolic 74–123
[2019-06-26] MEDS: MORPHINE SULFATE 2 MG/ML CPJ (NOT FOR IM USE) IV PRN ×4 (03:25→17:43)
[2019-06-26] MEDS: BUDESONIDE 0.5MG/2ML NEB HHN SCH (04:00)
[2019-06-26] MEDS: IPRATROPIUM/ALBUTEROL 0.5-3(2.5)MG/3ML NEB HHN SCH ×2 (06:00→23:34)
[2019-06-26] MEDS: ASPIRIN 81MG TABLET PO SCH (08:25)
[2019-06-26] MEDS: LEVOTHYROXINE SODIUM 75MCG TABLET PO SCH (08:25)
[2019-06-26] MEDS: AMLODIPINE 5MG TABLET PO SCH ×2 (08:25→20:47)
[2019-06-26] MEDS: ENOXAPARIN 30MG/0.3ML SYR SUBCUT SCH ×2 (08:39→21:00)
[2019-06-26] MEDS: DIPHENHYDRAMINE 50MG/ML VIAL IV PRN ×2 (10:01→20:51)
[2019-06-26] MEDS: LORAZEPAM 2MG/ML CPJ IV PRN ×2 (15:41→22:40)
[2019-06-26] MEDS: ATORVASTATIN CALCIUM 40MG TABLET PO SCH (20:46)
[2019-06-27] VITALS (23 sets, daily range): BP systolic 119–154; BP diastolic 40–117
[2019-06-27] MEDS: MORPHINE SULFATE 2 MG/ML CPJ (NOT FOR IM USE) IV PRN ×5 (00:02→22:22)
[2019-06-27] MEDS: IPRATROPIUM/ALBUTEROL 0.5-3(2.5)MG/3ML NEB HHN SCH ×3 (01:02→16:40)
[2019-06-27] MEDS: AMLODIPINE 5MG TABLET PO SCH ×2 (08:29→20:15)
[2019-06-27] MEDS: ASPIRIN 81MG TABLET PO SCH (08:29)
[2019-06-27] MEDS: LEVOTHYROXINE SODIUM 75MCG TABLET PO SCH (08:29)
[2019-06-27] MEDS: ENOXAPARIN 30MG/0.3ML SYR SUBCUT SCH ×2 (08:30→20:12)
[2019-06-27] MEDS: LORAZEPAM 2MG/ML CPJ IV PRN ×2 (09:14→22:22)
[2019-06-27] MEDS: DIPHENHYDRAMINE 50MG/ML VIAL IV PRN ×3 (10:03→22:22)
[2019-06-27] MEDS: ATORVASTATIN CALCIUM 40MG TABLET PO SCH (20:12)
[2019-06-28] VITALS (11 sets, daily range): BP systolic 119–155; BP diastolic 77–118
[2019-06-28] MEDS: MORPHINE SULFATE 2 MG/ML CPJ (NOT FOR IM USE) IV PRN ×5 (02:33→20:52)
[2019-06-28] MEDS: DIPHENHYDRAMINE 50MG/ML VIAL IV PRN ×2 (06:38→23:32)
[2019-06-28] MEDS: LEVOTHYROXINE SODIUM 75MCG TABLET PO SCH (09:00)
[2019-06-28] MEDS: ENOXAPARIN 30MG/0.3ML SYR SUBCUT SCH ×2 (09:00→20:51)
[2019-06-28] MEDS: ASPIRIN 81MG TABLET PO SCH (09:01)
[2019-06-28] MEDS: AMLODIPINE 5MG TABLET PO SCH ×2 (09:02→20:52)
[2019-06-28] MEDS ORDERED: LORAZEPAM 2MG/ML CPJ IM PRN (14:30)
[2019-06-28] MEDS: IPRATROPIUM/ALBUTEROL 0.5-3(2.5)MG/3ML NEB HHN SCH (20:50)
[2019-06-28] MEDS: ATORVASTATIN CALCIUM 40MG TABLET PO SCH (20:52)
[2019-06-29] VITALS (11 sets, daily range): BP systolic 121–151; BP diastolic 82–107
[2019-06-29] MEDS: MORPHINE SULFATE 2 MG/ML CPJ (NOT FOR IM USE) IV PRN ×5 (02:16→21:19)
[2019-06-29] MEDS: IPRATROPIUM/ALBUTEROL 0.5-3(2.5)MG/3ML NEB HHN SCH ×3 (08:20→14:20)
[2019-06-29] MEDS: ENOXAPARIN 30MG/0.3ML SYR SUBCUT SCH ×3 (08:37→21:18)
[2019-06-29] MEDS: LEVOTHYROXINE SODIUM 75MCG TABLET PO SCH (08:37)
[2019-06-29] MEDS: AMLODIPINE 5MG TABLET PO SCH ×2 (08:38→21:18)
[2019-06-29] MEDS: ASPIRIN 81MG TABLET PO SCH (08:48)
[2019-06-29] MEDS: DIPHENHYDRAMINE 50MG/ML VIAL IV PRN ×2 (10:14→19:49)
[2019-06-29] MEDS: ATORVASTATIN CALCIUM 40MG TABLET PO SCH (21:17)
[2019-06-30] VITALS (12 sets, daily range): BP systolic 110–149; BP diastolic 56–108
[2019-06-30] MEDS: MORPHINE SULFATE 2 MG/ML CPJ (NOT FOR IM USE) IV PRN ×5 (01:49→20:20)
[2019-06-30] MEDS: LEVOTHYROXINE SODIUM 75MCG TABLET PO SCH (08:43)
[2019-06-30] MEDS: ASPIRIN 81MG TABLET PO SCH (10:31)
[2019-06-30] MEDS: ENOXAPARIN 30MG/0.3ML SYR SUBCUT SCH ×3 (10:31→20:17)
[2019-06-30] MEDS: AMLODIPINE 5MG TABLET PO SCH ×2 (10:33→20:18)
[2019-06-30] MEDS: DIPHENHYDRAMINE 50MG/ML VIAL IV PRN ×2 (14:38→20:20)
[2019-06-30] MEDS: ATORVASTATIN CALCIUM 40MG TABLET PO SCH (20:18)
== END 2019-06-30 21:45 | disposition home health service (06) | DRG 133 ==
LOC: ER 21:45 → 5EST 06-23 05:57 → EDBEDREQSVC 06-23 09:52 → ENRESERV 06-23 10:43
PROVIDERS: ADMIT Internal Medicine; ATTEND Internal Medicine
DX: J96.20 Acute and chronic respiratory failure, unspecified whether with hypoxia or hypercapnia (principal); E87.8 Other disorders of electrolyte and fluid balance, not elsewhere classified; E44.1 Mild protein-calorie malnutrition; D64.9 Anemia, unspecified; E11.9 Type 2 diabetes mellitus without complications; E03.9 Hypothyroidism, unspecified; E78.5 Hyperlipidemia, unspecified; F41.9 Anxiety disorder, unspecified; G89.4 Chronic pain syndrome; I10 Essential (primary) hypertension; J45.909 Unspecified asthma, uncomplicated; Z86.73 Personal history of transient ischemic attack (TIA), and cerebral infarction without residual deficits; Z88.2 Allergy status to sulfonamides; Z88.8 Allergy status to other drugs, medicaments and biological substances; Z79.891 Long term (current) use of opiate analgesic; Z79.899 Other long term (current) drug therapy; Z68.31 Body mass index [BMI] 31.0-31.9, adult; Y92.89 Other specified places as the place of occurrence of the external cause; Y83.8 Other surgical procedures as the cause of abnormal reaction of the patient, or of later complication, without mention of misadventure at the time of the procedure; Y92.9 Unspecified place or not applicable
CPT/HCPCS: 36415; 71045; 80048; 80053; 83880; 84484; 85025; 93005; 94640; 97163; 97530; 99285; J0360; J1200; J1650; J2060; J2270; J7626

== ENCOUNTER 2019-07-17 12:55 | Inpatient (IN) | payer MEDICAID ==
[~2019-07-17] VITALS: Ht 182.9 cm; Wt 92.5 kg
[~2019-07-17 12:55] MED LIST changes: +LIDOCAINE HCL/PF 1% 2ML VIAL ONE
[2019-07-17 14:01] LABS: BG BASE EXCESS -0.6 mmol/L (-2.0-2.0); BG CARBOXYHEMOGLOBIN 0.1 % (0.5-1.5); BG FRACTION INSPIRED OXYGEN 21; BG HCO3 ACT 24.8 mmol/L (22.0-26.0); BG METHEMOGLOBIN 0.3 % (0.0-1.5); BG OXYHEMOGLOBIN 97.6 % (94.0-97.0); BG PCO2 43.6 mmHg (35.0-45.0); BG PH 7.373 (7.350-7.450); BG PO2 109.3 mmHg (75.0-100.0); BG SAMPLE SITE RIGHT RADIAL; BG TOTAL HEMOGLOBIN 13.1 g/dL (12.0-18.0); BG VENT MODE ROOM AIR
[2019-07-17] MEDS ORDERED: ONDANSETRON HCL 4MG/2ML INJ IV STA (14:21)
[2019-07-17] MEDS ORDERED: MORPHINE SULFATE 4 MG/ML CPJ (NOT FOR IM USE) IV STA (14:21)
[2019-07-17] MEDS ORDERED: LORAZEPAM 2MG/ML CPJ IV ONE (14:30)
[2019-07-17 14:43] LABS: BASOPHILS % 0.6 % (0.0-2.0); EOSINOPHILS % 2.8 % (0.0-5.0); HEMATOCRIT. 41.2 % (36.0-48.0); HEMOGLOBIN. 14.1 g/dL (12.0-16.0); LYMPHOCYTES % 21.8 % (20.0-50.0); MEAN CORPUSCULAR HEMOGLOBIN 30.2 pg (28.0-32.0); MEAN CORPUSCULAR VOLUME 87.9 fL (81.0-99.0); MONOCYTES % 7.2 % (2.0-8.0); NEUTROPHILS % 67.6 % (40.0-76.0); PLATELET 262 x1000/uL (130-400); RED BLOOD CELL COUNT 4.69 mill/uL (4.2-5.4); RED CELL DISTRIBUTION WIDTH 14.5 % (11.6-14.6)
[2019-07-17] MEDS ORDERED: METHYLPREDNISOLONE SOD SUCC 125 MG/2 ML VIAL IV STA (15:32)
[2019-07-17] MEDS ORDERED: ALBUTEROL (0.083%) 2.5MG/3ML NEB HHN STA (15:32)
[2019-07-17 15:46] LABS: CHLORIDE 110 mEq/L (98-107)
[2019-07-17 16:10] LABS: HCG SCREEN INDETERMINATE
[2019-07-17] MEDS: DIPHENHYDRAMINE 50MG/ML VIAL IV NR ×2 (17:12→17:39)
[2019-07-17] MEDS ORDERED: NA PHOS,M-B/NA PHOS,DI-BA ENEMA 118ML PR PRN (18:30)
[2019-07-17] MEDS ORDERED: ACETAMINOPHEN 650MG SUPP PR PRN ×2 (18:30)
[2019-07-17] MEDS ORDERED: ONDANSETRON HCL 4MG/2ML INJ IV PRN (18:30)
[2019-07-17] MEDS ORDERED: IPRATROPIUM/ALBUTEROL 0.5-3(2.5)MG/3ML NEB HHN PRN (18:30)
[2019-07-17] MEDS ORDERED: MAGNESIUM/ALUMINUM HYDROXIDE/SIMETHICONE 30ML UDC PO PRN (18:30)
[2019-07-17] MEDS: ENOXAPARIN 40MG/0.4ML SYR SUBCUT SCH (20:54)
[2019-07-17] MEDS: LEVOFLOXACIN 500MG PREMIX 100 ML IV SCH (20:56)
[2019-07-17] MEDS: CLONIDINE 0.1MG TABLET PO PRN (23:03)
[2019-07-17 23:07] VITALS: BP 157/107
[2019-07-18] VITALS (12 sets, daily range): BP systolic 138–179; BP diastolic 86–122
[2019-07-18] MEDS: HYDRALAZINE 20MG/ML VIAL IV PRN (00:15)
[2019-07-18] MEDS: DIPHENHYDRAMINE 50MG/ML VIAL IV PRN ×2 (00:15→21:40)
[2019-07-18] MEDS: HYDROCODONE/ACETAMINOPHEN 5/325MG TABLET PO PRN ×2 (00:16→13:42)
[2019-07-18] MEDS: GUAIFENESIN 600MG ER TABLET PO SCH ×3 (00:28→20:07)
[2019-07-18] MEDS: SODIUM CHLORIDE 0.9% INJ 3ML FLUSH IVF SCH ×2 (00:49→06:00)
[2019-07-18] MEDS: MORPHINE SULFATE 2 MG/ML CPJ (NOT FOR IM USE) IV PRN ×3 (05:33→20:06)
[2019-07-18] MEDS: LORAZEPAM 2MG/ML CPJ IV PRN ×3 (05:34→20:50)
[2019-07-18 07:42] LABS: BASOPHILS % 0.1 % (0.0-2.0); HEMATOCRIT. 39.1 % (36.0-48.0); HEMOGLOBIN. 13.4 g/dL (12.0-16.0); MEAN CORPUSCULAR HEMOGLOBIN 30.1 pg (28.0-32.0); MEAN PLATELET VOLUME 8.9 fl (7.4-10.4); MONOCYTES % 3.7 % (2.0-8.0); NEUTROPHILS % 87.2 % (40.0-76.0); PLATELET 212 x1000/uL (130-400); RED BLOOD CELL COUNT 4.44 mill/uL (4.2-5.4); RED CELL DISTRIBUTION WIDTH 14.1 % (11.6-14.6)
[2019-07-18 07:59] LABS: CHLORIDE 110 mEq/L (98-107)
[2019-07-18 08:07] LABS: LDL CHOLESTEROL 101 mg/dL (5-100)
[2019-07-18 08:09] LABS: HDL CHOLESTEROL 63 mg/dL (40-59)
[2019-07-18] MEDS: IPRATROPIUM/ALBUTEROL 0.5-3(2.5)MG/3ML NEB HHN SCH ×3 (08:25→20:54)
[2019-07-18] MEDS: CLONIDINE 0.1MG TABLET PO PRN (08:59)
[2019-07-18 09:38] LABS: BG BASE EXCESS -4.7 mmol/L (-2.0-2.0); BG CARBOXYHEMOGLOBIN 0.2 % (0.5-1.5); BG DEOXYHEMOGLOBIN 5.4 % (0.0-5.0); BG FRACTION INSPIRED OXYGEN 21; BG HCO3 ACT 20.8 mmol/L (22.0-26.0); BG OXYGEN SATURATION 94.6 % (92.0-98.5); BG OXYHEMOGLOBIN 94.4 % (94.0-97.0); BG PCO2 40.3 mmHg (35.0-45.0); BG PH 7.331 (7.350-7.450); BG PO2 74.4 mmHg (75.0-100.0); BG SAMPLE SITE RIGHT BRACHIAL; BG TOTAL HEMOGLOBIN 13.7 g/dL (12.0-18.0); BG VENT MODE ROOM AIR
[2019-07-18] MEDS: ENOXAPARIN 40MG/0.4ML SYR SUBCUT SCH (20:00)
[2019-07-18] MEDS: LEVOFLOXACIN 500MG PREMIX 100 ML IV SCH (20:05)
[2019-07-19] VITALS (13 sets, daily range): BP systolic 133–159; BP diastolic 88–127
[2019-07-19] MEDS: MORPHINE SULFATE 2 MG/ML CPJ (NOT FOR IM USE) IV PRN ×2 (00:15→06:02)
[2019-07-19] MEDS: IPRATROPIUM/ALBUTEROL 0.5-3(2.5)MG/3ML NEB HHN SCH ×4 (00:30→20:05)
[2019-07-19] MEDS: DIPHENHYDRAMINE 50MG/ML VIAL IV PRN ×2 (03:34→17:42)
[2019-07-19] MEDS: SODIUM CHLORIDE 0.9% INJ 3ML FLUSH IVF SCH ×3 (03:34→15:29)
[2019-07-19] MEDS: HYDROCODONE/ACETAMINOPHEN 5/325MG TABLET PO PRN ×2 (08:33→16:14)
[2019-07-19] MEDS: GUAIFENESIN 600MG ER TABLET PO SCH (08:34)
[2019-07-19] MEDS: CLONIDINE 0.1MG TABLET PO PRN ×2 (08:52→18:18)
[2019-07-19] MEDS: LORAZEPAM 2MG/ML CPJ IV PRN (11:44)
[2019-07-19] MEDS: HYDRALAZINE 20MG/ML VIAL IV PRN (11:47)
== END 2019-07-19 21:33 | disposition home health service (06) | DRG 143 ==
LOC: ER 13:18 → MICUSO 15:35 → 5EST 22:29
PROVIDERS: ADMIT Family Medicine; ATTEND Family Medicine
PROC: 0BW1XFZ Revision of Tracheostomy Device in Trachea, External Approach (ICD-10-PCS; principal; 2019-07-18)
DX: J95.09 Other tracheostomy complication (principal); J96.20 Acute and chronic respiratory failure, unspecified whether with hypoxia or hypercapnia; Z93.0 Tracheostomy status; J39.8 Other specified diseases of upper respiratory tract; D64.9 Anemia, unspecified; E11.9 Type 2 diabetes mellitus without complications; E03.9 Hypothyroidism, unspecified; E66.9 Obesity, unspecified; F41.9 Anxiety disorder, unspecified; X58.XXXA Exposure to other specified factors, initial encounter; G89.4 Chronic pain syndrome; I10 Essential (primary) hypertension; J45.909 Unspecified asthma, uncomplicated; Z88.9 Allergy status to unspecified drugs, medicaments and biological substances; Y93.89 Activity, other specified; Y92.89 Other specified places as the place of occurrence of the external cause; Y99.8 Other external cause status; Z88.2 Allergy status to sulfonamides; Z88.8 Allergy status to other drugs, medicaments and biological substances; Z91.018 Allergy to other foods; Z79.899 Other long term (current) drug therapy; Z68.27 Body mass index [BMI] 27.0-27.9, adult
CPT/HCPCS: 36415; 36600; 71045; 80053; 80061; 82375; 82805; 82962; 84484; 84703; 85025; 93005; 99285; J0360; J1200; J1650; J1956; J2060; J2270; J2405; J2930; J3490

== ENCOUNTER 2019-07-23 11:02 | Inpatient (IN) | payer MEDICAID ==
[~2019-07-23] VITALS: Ht 162.6 cm; Wt 93.5 kg
[~2019-07-23 11:02] MED LIST changes: -LIDOCAINE HCL/PF 1% 2ML VIAL ONE
[2019-07-23] MEDS ORDERED: LORAZEPAM 2MG/ML CPJ IV ONE (12:30)
[2019-07-23 12:38] LABS: BG BASE EXCESS -0.2 mmol/L (-2.0-2.0); BG CARBOXYHEMOGLOBIN 0.7 % (0.5-1.5); BG DEOXYHEMOGLOBIN 0.6 % (0.0-5.0); BG FRACTION INSPIRED OXYGEN 98; BG METHEMOGLOBIN 0.4 % (0.0-1.5); BG OXYGEN SATURATION 99.4 % (92.0-98.5); BG OXYHEMOGLOBIN 98.3 % (94.0-97.0); BG PCO2 54.5 mmHg (35.0-45.0); BG PH 7.313 (7.350-7.450); BG PO2 227.9 mmHg (75.0-100.0); BG SAMPLE SITE RIGHT RADIAL; BG TOTAL HEMOGLOBIN 14.3 g/dL (12.0-18.0); BG VENT MODE MASK - AEROSOL
[2019-07-23] MEDS ORDERED: LIDOCAINE HCL/PF 1% 2ML VIAL ONE (12:56)
[2019-07-23] MEDS ORDERED: ACETAMINOPHEN 325MG TABLET PO PRN ×2 (15:00)
[2019-07-23] MEDS ORDERED: GUAIFENESIN 200MG/10ML SUGAR FREE UDC PO PRN (15:00)
[2019-07-23] MEDS ORDERED: MAGNESIUM/ALUMINUM HYDROXIDE/SIMETHICONE 30ML UDC PO PRN (15:00)
[2019-07-23] MEDS ORDERED: IPRATROPIUM/ALBUTEROL 0.5-3(2.5)MG/3ML NEB HHN PRN (15:00)
[2019-07-23] MEDS ORDERED: NITROGLYCERIN 0.4MG TABLET SL SL PRN (15:00)
[2019-07-23] MEDS ORDERED: DOCUSATE SODIUM 100MG CAPSULE PO PRN (15:00)
[2019-07-23] MEDS ORDERED: CLONIDINE 0.1MG TABLET PO PRN (15:00)
[2019-07-23] MEDS ORDERED: PIPERACILLIN/TAZOBACTAM 3.375 G in DEXT 5% WATER 100 ML IV NR (15:15)
[2019-07-23] MEDS ORDERED: VANCOMYCIN 1,750 MG in DEXT 5% WATER 250 ML IV NR (15:15)
[2019-07-23] MEDS: LORAZEPAM 2MG/ML CPJ IV PRN (16:12)
[2019-07-23 19:06] LABS: BASOPHILS % 0.4 % (0.0-2.0); CHLORIDE 107 mEq/L (98-107); EOSINOPHILS % 0.2 % (0.0-5.0); HEMATOCRIT. 42.2 % (36.0-48.0); LYMPHOCYTES % 13.1 % (20.0-50.0); MEAN CORPUSCULAR VOLUME 87.7 fL (81.0-99.0); MEAN PLATELET VOLUME 8.1 fl (7.4-10.4); MONOCYTES % 6.3 % (2.0-8.0); PLATELET 258 x1000/uL (130-400); RED BLOOD CELL COUNT 4.81 mill/uL (4.2-5.4); RED CELL DISTRIBUTION WIDTH 14.3 % (11.6-14.6)
[2019-07-23 19:13] LABS: LDL CHOLESTEROL 102 mg/dL (5-100)
[2019-07-23 19:15] LABS: HDL CHOLESTEROL 51 mg/dL (40-59)
[2019-07-23 19:20] LABS: D-DIMER 0.37 mg/L FEU (<0.50); PROTHROMBIN TIME 10.8 sec (9.6-11.0)
[2019-07-23] MEDS ORDERED: PIPERACILLIN/TAZ 3.375G PREMIX 50 ML IV SCH (22:00)
[2019-07-23] MEDS: FAMOTIDINE 20MG TABLET PO SCH (22:15)
[2019-07-23] MEDS: MORPHINE SULFATE 2 MG/ML CPJ (NOT FOR IM USE) IV PRN (22:16)
[2019-07-23] MEDS: ASCORBIC ACID 500 MG TABLET PO SCH (22:16)
[2019-07-23] MEDS: ENOXAPARIN 40MG/0.4ML SYR SUBCUT SCH (22:17)
[2019-07-23] MEDS: CARVEDILOL 3.125 MG TABLET PO SCH (23:10)
[2019-07-23] MEDS: ATORVASTATIN CALCIUM 10MG TABLET PO SCH (23:12)
[2019-07-24 00:30] LABS: CREATINE KINASE MB FRACTION 2.3 ng/mL (0.5-3.6)
[2019-07-24] MEDS: IPRATROPIUM/ALBUTEROL 0.5-3(2.5)MG/3ML NEB HHN SCH ×5 (03:55→21:04)
[2019-07-24] MEDS: LORAZEPAM 2MG/ML CPJ IV PRN ×2 (04:22→17:44)
[2019-07-24] MEDS ORDERED: VANCOMYCIN 1 G PREMIX 200 ML IV SCH (06:00)
[2019-07-24] MEDS: KETOROLAC 15MG/ML VIAL IV PRN ×2 (07:07→20:16)
[2019-07-24 08:10] LABS: BASOPHILS % 0.7 % (0.0-2.0); EOSINOPHILS % 2.5 % (0.0-5.0); HEMOGLOBIN. 13.3 g/dL (12.0-16.0); LYMPHOCYTES % 15.6 % (20.0-50.0); MEAN CORPUSCULAR HEMOGLOBIN 29.8 pg (28.0-32.0); MEAN CORPUSCULAR VOLUME 87.2 fL (81.0-99.0); MEAN PLATELET VOLUME 8.7 fl (7.4-10.4); MONOCYTES % 10.8 % (2.0-8.0); NEUTROPHILS % 70.4 % (40.0-76.0); PLATELET 160 x1000/uL (130-400); RED BLOOD CELL COUNT 4.48 mill/uL (4.2-5.4); RED CELL DISTRIBUTION WIDTH 14.4 % (11.6-14.6)
[2019-07-24 08:16] LABS: CHLORIDE 107 mEq/L (98-107)
[2019-07-24 08:17] LABS: BG CARBOXYHEMOGLOBIN 0.3 % (0.5-1.5); BG DEOXYHEMOGLOBIN 0.8 % (0.0-5.0); BG HCO3 ACT 24.8 mmol/L (22.0-26.0); BG METHEMOGLOBIN 0.7 % (0.0-1.5); BG OXYGEN SATURATION 99.2 % (92.0-98.5); BG OXYHEMOGLOBIN 98.2 % (94.0-97.0); BG PCO2 36.9 mmHg (35.0-45.0); BG PH 7.446 (7.350-7.450); BG PO2 284.6 mmHg (75.0-100.0); BG SAMPLE SITE RIGHT BRACHIAL; BG TIDAL VOLUME(mL) 500 mL; BG TOTAL HEMOGLOBIN 13.3 g/dL (12.0-18.0); BG VENT MODE VENT - A/C; BG VENT RATE 12 set
[2019-07-24 08:22] LABS: PHOSPHORUS 2.4 mg/dL (2.5-4.9)
[2019-07-24 08:29] LABS: CREATINE KINASE MB FRACTION 2.1 ng/mL (0.5-3.6)
[2019-07-24] MEDS: LEVOTHYROXINE SODIUM 75MCG TABLET PO SCH (09:01)
[2019-07-24] MEDS: PIPERACILLIN/TAZOBACTAM 3.375 G in DEXT 5% WATER 100 ML IV SCH ×4 (09:01→16:03)
[2019-07-24] MEDS: CARVEDILOL 3.125 MG TABLET PO SCH ×2 (10:10→21:00)
[2019-07-24] MEDS: FAMOTIDINE 20MG TABLET PO SCH ×2 (10:17→21:57)
[2019-07-24] MEDS: ZINC SULFATE 220 MG ( 50 ) CAPSULE PO SCH (10:17)
[2019-07-24] MEDS: ASCORBIC ACID 500 MG TABLET PO SCH ×2 (10:17→21:57)
[2019-07-24] MEDS: MORPHINE SULFATE 2 MG/ML CPJ (NOT FOR IM USE) IV PRN ×3 (10:30→22:09)
[2019-07-24] MEDS: ATORVASTATIN CALCIUM 10MG TABLET PO SCH (21:00)
[2019-07-24] MEDS: ENOXAPARIN 40MG/0.4ML SYR SUBCUT SCH (21:00)
[2019-07-24 23:45] VITALS: BP 129/101
[2019-07-25] VITALS (11 sets, daily range): BP systolic 98–135; BP diastolic 60–94
[2019-07-25] MEDS: IPRATROPIUM/ALBUTEROL 0.5-3(2.5)MG/3ML NEB HHN SCH ×6 (00:21→21:11)
[2019-07-25] MEDS: LORAZEPAM 0.5MG TABLET PO PRN ×2 (01:10→11:23)
[2019-07-25] MEDS: PIPERACILLIN/TAZOBACTAM 3.375 G in DEXT 5% WATER 100 ML IV SCH ×4 (01:10→23:31)
[2019-07-25] MEDS: LEVOTHYROXINE SODIUM 75MCG TABLET PO SCH (06:21)
[2019-07-25] MEDS: CARVEDILOL 3.125 MG TABLET PO SCH ×2 (09:18→20:51)
[2019-07-25] MEDS: ZINC SULFATE 220 MG ( 50 ) CAPSULE PO SCH (09:18)
[2019-07-25] MEDS: ASCORBIC ACID 500 MG TABLET PO SCH ×2 (09:18→20:51)
[2019-07-25] MEDS: FAMOTIDINE 20MG TABLET PO SCH ×2 (09:18→20:51)
[2019-07-25] MEDS: MORPHINE SULFATE 2 MG/ML CPJ (NOT FOR IM USE) IV PRN ×3 (09:19→22:48)
[2019-07-25] MEDS: DIPHENHYDRAMINE 25MG CAPSULE PO PRN ×2 (10:39→23:31)
[2019-07-25] MEDS ORDERED: VANCOMYCIN 500 MG PREMIX 100 ML IV SCH (18:00)
[2019-07-25] MEDS: ONDANSETRON HCL 4MG/2ML INJ IV PRN (18:21)
[2019-07-25] MEDS: LORAZEPAM 2MG/ML CPJ IV PRN (19:44)
[2019-07-25] MEDS: ATORVASTATIN CALCIUM 10MG TABLET PO SCH (20:51)
[2019-07-25] MEDS: ENOXAPARIN 30MG/0.3ML SYR SUBCUT SCH (20:55)
[2019-07-26] VITALS (12 sets, daily range): BP systolic 97–146; BP diastolic 54–95
[2019-07-26] MEDS: LORAZEPAM 2MG/ML CPJ IV PRN ×2 (00:53→23:59)
[2019-07-26] MEDS: MORPHINE SULFATE 2 MG/ML CPJ (NOT FOR IM USE) IV PRN ×4 (03:51→21:45)
[2019-07-26] MEDS: ZINC SULFATE 220 MG ( 50 ) CAPSULE PO SCH (08:14)
[2019-07-26] MEDS: LEVOTHYROXINE SODIUM 75MCG TABLET PO SCH (08:14)
[2019-07-26] MEDS: ASCORBIC ACID 500 MG TABLET PO SCH ×2 (08:14→20:26)
[2019-07-26] MEDS: FAMOTIDINE 20MG TABLET PO SCH ×2 (08:14→20:26)
[2019-07-26] MEDS: CARVEDILOL 3.125 MG TABLET PO SCH ×2 (08:14→20:26)
[2019-07-26] MEDS: KETOROLAC 15MG/ML VIAL IV PRN ×3 (08:15→20:27)
[2019-07-26] MEDS: PIPERACILLIN/TAZOBACTAM 3.375 G in DEXT 5% WATER 100 ML IV SCH ×3 (08:17→23:59)
[2019-07-26] MEDS: IPRATROPIUM/ALBUTEROL 0.5-3(2.5)MG/3ML NEB HHN SCH ×4 (08:41→20:52)
[2019-07-26] MEDS: DIPHENHYDRAMINE 25MG CAPSULE PO PRN ×2 (09:20→21:45)
[2019-07-26] MEDS ORDERED: VANCOMYCIN 1 G PREMIX 200 ML IV SCH (12:00)
[2019-07-26] MEDS: ATORVASTATIN CALCIUM 10MG TABLET PO SCH (20:26)
[2019-07-26] MEDS: ENOXAPARIN 30MG/0.3ML SYR SUBCUT SCH ×2 (20:26→21:00)
[2019-07-27] VITALS (12 sets, daily range): BP systolic 99–142; BP diastolic 67–98
[2019-07-27] MEDS: IPRATROPIUM/ALBUTEROL 0.5-3(2.5)MG/3ML NEB HHN SCH ×3 (00:04→08:05)
[2019-07-27] MEDS: MORPHINE SULFATE 2 MG/ML CPJ (NOT FOR IM USE) IV PRN ×3 (04:38→17:06)
[2019-07-27] MEDS: ONDANSETRON HCL 4MG/2ML INJ IV PRN ×2 (06:47→18:09)
[2019-07-27] MEDS: ZINC SULFATE 220 MG ( 50 ) CAPSULE PO SCH (09:20)
[2019-07-27] MEDS: ASCORBIC ACID 500 MG TABLET PO SCH ×2 (09:21→20:46)
[2019-07-27] MEDS: LEVOTHYROXINE SODIUM 75MCG TABLET PO SCH (09:21)
[2019-07-27] MEDS: PIPERACILLIN/TAZOBACTAM 3.375 G in DEXT 5% WATER 100 ML IV SCH ×2 (09:21→17:06)
[2019-07-27] MEDS: FAMOTIDINE 20MG TABLET PO SCH (09:21)
[2019-07-27] MEDS: CARVEDILOL 3.125 MG TABLET PO SCH ×3 (09:22→20:54)
[2019-07-27] MEDS: LORAZEPAM 2MG/ML CPJ IV PRN ×2 (09:22→18:09)
[2019-07-27] MEDS: KETOROLAC 15MG/ML VIAL IV PRN (14:40)
[2019-07-27] MEDS: ENOXAPARIN 30MG/0.3ML SYR SUBCUT SCH (20:47)
[2019-07-27] MEDS: ATORVASTATIN CALCIUM 10MG TABLET PO SCH (20:47)
[2019-07-27] MEDS ORDERED: FAMOTIDINE 20MG TABLET PO SCH (21:00)
== END 2019-07-27 21:55 | disposition home or self-care (01) | DRG 813 ==
LOC: ER 11:02 → 5EST 14:04 → UNDOADMIN 14:04 → MICUSO 14:04 → EDBEDREQ 14:07 → EDBEDREQTM 14:07 → EDBEDREQSVC 14:07
PROVIDERS: ADMIT Internal Medicine; ATTEND Internal Medicine
PROC: 5A1945Z Respiratory Ventilation, 24-96 Consecutive Hours (ICD-10-PCS; principal; 2019-07-23)
PROC: 0B21XFZ Change Tracheostomy Device in Trachea, External Approach (ICD-10-PCS; 2019-07-23)
DX: T85.698A Other mechanical complication of other specified internal prosthetic devices, implants and grafts, initial encounter (principal); N17.0 Acute kidney failure with tubular necrosis; J96.21 Acute and chronic respiratory failure with hypoxia; G92 Toxic encephalopathy; J18.9 Pneumonia, unspecified organism; T17.890A Other foreign object in other parts of respiratory tract causing asphyxiation, initial encounter; I95.9 Hypotension, unspecified; J96.22 Acute and chronic respiratory failure with hypercapnia; J95.03 Malfunction of tracheostomy stoma; E44.1 Mild protein-calorie malnutrition; E03.9 Hypothyroidism, unspecified; D64.9 Anemia, unspecified; E11.9 Type 2 diabetes mellitus without complications; G89.4 Chronic pain syndrome; F41.9 Anxiety disorder, unspecified; I10 Essential (primary) hypertension; E78.00 Pure hypercholesterolemia, unspecified; J45.909 Unspecified asthma, uncomplicated; Y95 Nosocomial condition; K21.9 Gastro-esophageal reflux disease without esophagitis; X58.XXXA Exposure to other specified factors, initial encounter; Z20.828 Contact with and (suspected) exposure to other viral communicable diseases; Y83.8 Other surgical procedures as the cause of abnormal reaction of the patient, or of later complication, without mention of misadventure at the time of the procedure; Y82.8 Other medical devices associated with adverse incidents; Z68.35 Body mass index [BMI] 35.0-35.9, adult; Z86.73 Personal history of transient ischemic attack (TIA), and cerebral infarction without residual deficits; Y93.89 Activity, other specified; Y92.89 Other specified places as the place of occurrence of the external cause; Y99.8 Other external cause status; Z88.2 Allergy status to sulfonamides; Z88.8 Allergy status to other drugs, medicaments and biological substances; Z91.02 Food additives allergy status; Z79.1 Long term (current) use of non-steroidal anti-inflammatories (NSAID); Z79.899 Other long term (current) drug therapy
CPT/HCPCS: 36415; 36600; 71045; 80048; 80053; 80061; 80202; 82375; 82550; 82553; 82805; 83036; 83735; 84100; 84145; 84443; 84484; 85025; 85379; 85384; 93005; 93970; 99291; J1650; J1885; J2060; J2270; J2405; J2543; J3370; J3490; J7060; Q0163; U0003-CS

== ENCOUNTER 2019-08-03 22:32 | Emergency (ER) | payer MEDICAID ==
[~2019-08-03] VITALS: Ht 182.9 cm; Wt 90.0 kg
[2019-08-03] MEDS ORDERED: ONDANSETRON HCL 4MG/2ML INJ IV STA (23:40)
[2019-08-03] MEDS ORDERED: IPRATROPIUM BROMIDE (0.02%) 0.5MG/2.5ML NEB HHN STA (23:40)
[2019-08-03] MEDS ORDERED: METHYLPREDNISOLONE SOD SUCC 125 MG/2 ML VIAL IV STA (23:40)
[2019-08-03] MEDS: ALBUTEROL (0.083%) 2.5MG/3ML NEB HHN SCH (23:50)
[2019-08-04 00:18] LABS: BASOPHILS % 0.4 % (0.0-2.0); EOSINOPHILS % 2.2 % (0.0-5.0); HEMATOCRIT. 39.1 % (36.0-48.0); HEMOGLOBIN. 13.1 g/dL (12.0-16.0); MEAN CORPUSCULAR HEMOGLOBIN 29.5 pg (28.0-32.0); MEAN CORPUSCULAR VOLUME 87.8 fL (81.0-99.0); MEAN PLATELET VOLUME 7.4 fl (7.4-10.4); MONOCYTES % 6.2 % (2.0-8.0); NEUTROPHILS % 76.2 % (40.0-76.0); PLATELET 300 x1000/uL (130-400); RED BLOOD CELL COUNT 4.45 mill/uL (4.2-5.4); RED CELL DISTRIBUTION WIDTH 13.7 % (11.6-14.6)
[2019-08-04 00:24] LABS: CHLORIDE 107 mEq/L (98-107)
[2019-08-04] MEDS: ALBUTEROL (0.083%) 2.5MG/3ML NEB HHN SCH ×2 (00:30→01:00)
[2019-08-04] MEDS ORDERED: LORAZEPAM 2MG/ML CPJ IV ONE (01:00)
[2019-08-04 05:51] VITALS: BP 133/96
[2019-08-04] MEDS ORDERED: LIDOCAINE HCL/PF 1% 2ML VIAL ONE (13:05)
== END 2019-08-04 06:06 | disposition home or self-care (01) ==
LOC: ER 22:32 → CANBEDREQ 08-04 04:13 → ER 08-04 06:06
DX: J95.03 Malfunction of tracheostomy stoma (principal); J44.9 Chronic obstructive pulmonary disease, unspecified; I10 Essential (primary) hypertension; E11.9 Type 2 diabetes mellitus without complications; J45.909 Unspecified asthma, uncomplicated; Z91.018 Allergy to other foods; Z88.3 Allergy status to other anti-infective agents; Z88.2 Allergy status to sulfonamides; Y83.8 Other surgical procedures as the cause of abnormal reaction of the patient, or of later complication, without mention of misadventure at the time of the procedure; Y92.018 Other place in single-family (private) house as the place of occurrence of the external cause
CPT/HCPCS: 36415; 71045; 80053; 83605; 83880; 84484; 85025; 87040; 93005; 94640; 96374; 96375; 99285; J2060; J2405; J2930; J3490; Z7610

== ENCOUNTER 2019-10-21 19:00 | Emergency (ER) | payer MEDICAID ==
[~2019-10-21] VITALS: Ht 172.7 cm; Wt 92.9 kg
[2019-10-21] MEDS ORDERED: SODIUM CHLORIDE 0.9% 1,000 ML IV ONE (19:10)
[2019-10-21 19:56] LABS: BASOPHILS % 0.3 % (0.0-2.0); EOSINOPHILS % 0.8 % (0.0-5.0); HEMATOCRIT. 38.9 % (36.0-48.0); LYMPHOCYTES % 11.1 % (20.0-50.0); MEAN CORPUSCULAR HEMOGLOBIN 29.5 pg (28.0-32.0); MEAN CORPUSCULAR VOLUME 87.9 fL (81.0-99.0); MEAN PLATELET VOLUME 8.3 fl (7.4-10.4); MONOCYTES % 4.6 % (2.0-8.0); NEUTROPHILS % 83.2 % (40.0-76.0); PLATELET 159 x1000/uL (130-400); RED BLOOD CELL COUNT 4.42 mill/uL (4.2-5.4); RED CELL DISTRIBUTION WIDTH 15.4 % (11.6-14.6)
[2019-10-21 20:00] LABS: CHLORIDE 107 mEq/L (98-107)
[2019-10-21 20:03] LABS: PROTHROMBIN TIME 10.7 sec (9.6-11.0)
[2019-10-21 20:09] LABS: ETHANOL BLOOD < 10 mg/dL
[2019-10-21 20:11] LABS: LDL CHOLESTEROL 94 mg/dL (5-100)
[2019-10-21] MEDS ORDERED: LEVETIRACETAM 1000MG/100ML 100 ML IV ONE (20:45)
[2019-10-21] MEDS ORDERED: LABETALOL 5MG/ML SYR 20 MG/4 ML SYRINGE IV ONE (20:45)
[2019-10-21] MEDS ORDERED: NICARDIPINE 40MG/200ML PREMIX 200 ML IV PRN (20:45)
[2019-10-21] MEDS ORDERED: MANNITOL 20% (20GM/100ML) BAG 500ML PREMIX IV ONE (21:30)
[2019-10-21] MEDS ORDERED: DEXAMETHASONE 4MG/ML 1ML VIAL IV ONE (21:30)
[2019-10-21] MEDS ORDERED: MANNITOL 20% 250 ML IV SCH (21:45)
[2019-10-21] MEDS ORDERED: PROPOFOL 10MG/ML 100ML 100 ML IV ONE (22:30)
[2019-10-21] MEDS ORDERED: MORPHINE SULFATE 10 MG/ML CPJ IV NR (22:35)
[2019-10-21] MEDS ORDERED: IOHEXOL-350 100 ML BOTTLE ONE (22:44)
[2019-10-21] MEDS ORDERED: LIDOCAINE HCL 1% 20ML VIAL (Pyxis) INJ ONE (22:51)
[2019-10-21] MEDS ORDERED: MORPHINE SULFATE 10 MG/ML CPJ ONE (23:01)
[2019-10-21 23:14] VITALS: BP 103/67
== END 2019-10-21 23:15 | disposition short-term general hospital (02) ==
LOC: ER 19:00 → EDBEDREQ 20:38 → EDBEDREQSVC 20:38 → EDBEDREQTM 20:38 → ER 23:15 → CANBEDREQ 23:51
DX: I60.8 Other nontraumatic subarachnoid hemorrhage (principal); E11.9 Type 2 diabetes mellitus without complications; J45.909 Unspecified asthma, uncomplicated; I10 Essential (primary) hypertension; Z86.73 Personal history of transient ischemic attack (TIA), and cerebral infarction without residual deficits; Z93.0 Tracheostomy status; Z91.018 Allergy to other foods; Z88.2 Allergy status to sulfonamides
CPT/HCPCS: 36415; 70450; 70496; 70498; 71045; 80053; 80320; 83721; 83880; 84484; 85025; 85610; 87635; 93005; 94002; 96365; 96367; 96375; 99285; C9803; J1100; J1953; J2270; J3490; J7030; Q9967; Z7610; G0480